=== PATIENT | male | born 1960 | race Caucasian/White ===

== ENCOUNTER 2017-03-08 15:48 | Emergency (ER) | payer OTHER ==
[~2017-03-08] VITALS: Ht 170.2 cm; Wt 99.8 kg
--- NOTE | 2017-03-08 16:09 | PHYS DOC ---
Adult General Chief Complaint Chief Complaint: NEURO SYMPTOMS/DEFICITS HPI HPI Patient is a 56 year old male who presents with slurred speech. The patient reports he was speaking on the phone at work at 0900 this morning and noticed that his speech was slurred. He believes symptoms began exactly at that time. He thinks he spoke to his dog sometime this morning and did not notice a speech deficit, though not entirely certain if he had spoken aloud since before going to bed last night. He states his symptoms are persistent until about 1600 when he arrived here. Now he states his speech is completely normal. He denies any difficulty with word finding. Denies any other neurologic symptoms including facial droop or numbness, strep any numbness or weakness, ataxia. Denies fevers or chills, headache, chest pain, shortness of breath. Denies previous history of similar symptoms. History of hypertension. Nonsmoker. Does not take aspirin daily. No family history of CVA or CAD. PCP is Dr. Vila. Review of Systems Review of Systems Constitutional: Denies fever or chills Eyes: Denies change in visual acuity HENT: Denies nasal congestion or sore throat Respiratory: Denies cough or shortness of breath Cardiovascular: Denies chest pain or edema GI: Denies abdominal pain, nausea, vomiting, or diarrhea Musculoskeletal: Denies back pain or joint pain Integument: Denies rash or skin lesions Neurologic: Reports slurred speech. Denies headache, focal weakness or sensory changes Allergies Allergies Allergies Coded Allergies Type Severity Reaction Last Updated Verified No Known Drug Allergies 03/08/17 No Physical Exam Physical Exam Constitutional: Well developed, well nourished, no acute distress, non-toxic appearance. HENT: Normocephalic, atraumatic, bilateral external ears normal, oropharynx moist, nose normal. Eyes: PERRLA, EOMI, conjunctiva normal, no discharge. Neck: supple, no stridor. Cardiovascular: RRR, no murmurs, no edema. Lungs & Thorax: LCTAB, no wheezing, no respiratory distress. Abdomen: soft, nontender, nondistended. Skin: Warm, dry, no erythema, no rash. Back: No tenderness. Extremities: No tenderness, no edema. Neurologic: Alert and oriented X 3, cranial nerves II through XII grossly intact , symmetric strength and sensation to upper and lower extremities, normal speech , no focal deficits noted. Psychologic: Affect normal, judgement normal, mood normal. Current Patient Data Vital Signs Vital Signs Date Time Temp Pulse Resp B/P (MAP) Pulse Ox O2 Delivery O2 Flow Rate FiO2 03/08/17 15:56 98.1 77 18 184/97 (126) 98 Room Air 98.1 Lab Values Laboratory Tests Test 03/08/17 16:00 03/08/17 16:05 White Blood Count 8.5 x10^3/uL (4.0-11.0) Red Blood Count 5.63 x10^6/uL (4.30-5.70) Hemoglobin 16.6 g/dL (13.0-17.5) Hematocrit 48.3 % (39.0-53.0) Mean Corpuscular Volume 86 fL (79-100) Mean Corpuscular Hemoglobin 30 pg (25-35) Mean Corpuscular Hemoglobin Concent 34 g/dL (31-37) Red Cell Distribution Width 15.0 % (11.5-14.5) H Platelet Count 230 x10^3/uL (140-400) Neutrophils (%) (Auto) 64 % (31-73) Lymphocytes (%) (Auto) 27 % (24-48) Monocytes (%) (Auto) 5 % (0-9) Eosinophils (%) (Auto) 3 % (0-3) Basophils (%) (Auto) 1 % (0-3) Neutrophils # (Auto) 5.5 x10^3uL (1.8-7.7) Lymphocytes # (Auto) 2.3 x10^3/uL (1.0-4.8) Monocytes # (Auto) 0.4 x10^3/uL (0.0-1.1) Eosinophils # (Auto) 0.3 x10^3/uL (0.0-0.7) Basophils # (Auto) 0.1 x10^3/uL (0.0-0.2) Prothrombin Time 11.4 SEC (11.7-14.0) L Prothrombin Time INR 0.9 (0.8-1.1) PTT 24 SEC (24-38) Sodium Level 141 mmol/L (136-145) Potassium Level 3.4 mmol/L (3.5-5.1) L Chloride Level 102 mmol/L (98-107) Carbon Dioxide Level 30 mmol/L (21-32) Anion Gap 9 (6-14) Blood Urea Nitrogen 15 mg/dL (8-26) Creatinine 1.2 mg/dL (0.7-1.3) Estimated GFR (Cockcroft-Gault) 63.1 BUN/Creatinine Ratio 13 (6-20) Glucose Level 152 mg/dL (70-99) H Calcium Level 9.3 mg/dL (8.5-10.1) Total Bilirubin 0.6 mg/dL (0.2-1.0) Aspartate Amino Transferase (AST) 16 U/L (15-37) Alanine Aminotransferase (ALT) 36 U/L (16-63) Alkaline Phosphatase 78 U/L (46-116) Troponin I Quantitative < 0.017 ng/mL (0.000-0.055) Total Protein 8.0 g/dL (6.4-8.2) Albumin 4.1 g/dL (3.4-5.0) Albumin/Globulin Ratio 1.1 (1.0-1.7) Ethyl Alcohol Level < 10 mg/dL (0-10) Glucose (Fingerstick) 164 mg/dL (70-99) H Laboratory Tests 03/08/17 16:00 Laboratory Tests 03/08/17 16:00 EKG EKG interpreted by me: NSR rate 66, no acute ST/T wave changes, normal intervals, no ectopy.[] Radiology/Procedures Radiology/Procedures PROCEDURE: CHEST AP ONLY AP portable chest radiograph 03/08/2017 Clinical History: Unexplained speech difficulties. An AP portable erect digital radiograph of the chest was obtained. No previous studies are available for comparison. The cardiac silhouette is normal in size. The thoracic aorta is mildly tortuous. No acute pulmonary infiltrate is seen. No pleural effusion or pneumothorax is noted. Degenerative changes are seen involving the thoracic spine and both shoulders. Impression: No acute abnormality is seen. DICTATED and SIGNED BY: ALENA SWANSON MD DATE: 03/08/17 1051 PROCEDURE: CHEST AP ONLY AP portable chest radiograph 03/08/2017 Clinical History: Unexplained speech difficulties. An AP portable erect digital radiograph of the chest was obtained. No previous studies are available for comparison. The cardiac silhouette is normal in size. The thoracic aorta is mildly tortuous. No acute pulmonary infiltrate is seen. No pleural effusion or pneumothorax is noted. Degenerative changes are seen involving the thoracic spine and both shoulders. Impression: No acute abnormality is seen. DICTATED and SIGNED BY: ALENA SWANSON MD DATE: 03/08/17 5617 [] Course & Med Decision Making Course & Med Decision Making Pertinent Labs and Imaging studies reviewed. (See chart for details) The patient presents with history of slurred speech earlier today. Symptoms completely resolved with an NIH score of 0. History is concerning for TIA. Obtained labs, EKG, head CT, chest x-ray. No evidence of acute abnormality on workup here. I recommended admission to the hospital for further evaluation and treatment including neurology consultation and advanced imaging. The patient wanted to go home to take care of his dog. We discussed risks of leaving including worsening condition specifically severe stroke, undiagnosed condition , possibly . He voices understanding, is alert and oriented 3, understands risks of leaving, but states he has nobody else to take care of his head. He understands that he may return at any time to continue workup. I specifically made him aware that I will be here until midnight tonight. He is going to leave AGAINST MEDICAL ADVICE. He is in stable condition at this time. Diagnosis: 1. Slurred speech 2. Suspect transient ischemic attack [] Dragon Disclaimer Dragon Disclaimer This electronic medical record was generated, in whole or in part, using a voice recognition dictation system. Departure Departure Disposition: AGAINST MEDICAL ADVICE Condition: STABLE Referrals: EMMA VILA Jr, MD (PCP) Patient Instructions: Transient Ischemic Attack, [id number] Additional Instructions: You were seen in the emergency department today for slurred speech. Your symptoms could be caused by a transient ischemic attack which is commonly called a mini stroke. We recommended admission to the hospital for further evaluation by a neurologist and additional diagnostic testing. You needed to leave for personal reasons. The risks of leaving include worsening condition, undiagnosed condition, possibly . You may return to the hospital for admission if you choose. MARISSA OSULLIVAN MD Mar 08, 2017 16:09
[2017-03-08 16:30] LABS: BASO # 0.1 x10^3/uL (0.0-0.2); BASO % 1 % (0-3); EOS % 3 % (0-3); HEMATOCRIT 48.3 % (39.0-53.0); HEMOGLOBIN 16.6 g/dL (13.0-17.5); LYMPH # 2.3 x10^3/uL (1.0-4.8); LYMPH % 27 % (24-48); MEAN CORPUSCULAR HEMOGLOBIN 30 pg (25-35); MEAN CORPUSCULAR HGB CONC 34 g/dL (31-37); MEAN CORPUSCULAR VOLUME 86 fL (79-100); MONO % 5 % (0-9); NEUT % 64 % (31-73); PLATELET COUNT 230 x10^3/uL (140-400); RED BLOOD COUNT 5.63 x10^6/uL (4.30-5.70); WHITE BLOOD COUNT 8.5 x10^3/uL (4.0-11.0)
[2017-03-08 16:37] LABS: INR 0.9 (0.8-1.1); PROTHROMBIN TIME PATIENT 11.4 SEC (11.7-14.0)
--- NOTE | 2017-03-08 16:38 | RAD ---
AP portable chest radiograph 03/08/2017 Clinical History: Unexplained speech difficulties. An AP portable erect digital radiograph of the chest was obtained. No previous studies are available for comparison. The cardiac silhouette is normal in size. The thoracic aorta is mildly tortuous. No acute pulmonary infiltrate is seen. No pleural effusion or pneumothorax is noted. Degenerative changes are seen involving the thoracic spine and both shoulders. Impression: No acute abnormality is seen.
--- NOTE | 2017-03-08 16:39 | EKG ---
[facility] [address] [place] [address] Test Date: 2017-03-08 Test Time: 16:24:54 Pat Name: ALEXSANDRA HAYNES Department: Room: Gender: M [employer]: : 1960 Requested By: MARISSA OSULLIVAN Order Number: [id number] Reading MD: Asaf Shelton Measurements Intervals [place] Rate: 66 P: 35 NE: 158 QRS: 19 QRSD: 94 T: 60 QT: 410 QTc: 432 Interpretive Statements SINUS RHYTHM NON-SPECIFIC ST/T CHANGES Electronically Signed On 03-13-2017 8:45:44 CDT by Asaf Shelton
[2017-03-08 16:41] LABS: CALCIUM 9.3 mg/dL (8.5-10.1); CREATININE 1.2 mg/dL (0.7-1.3); GFR 63.1; POTASSIUM 3.4 mmol/L (3.5-5.1)
[2017-03-08 16:48] LABS: ALBUMIN 4.1 g/dL (3.4-5.0); ALBUMIN/GLOBULIN RATIO 1.1 (1.0-1.7); TOTAL BILIRUBIN 0.6 mg/dL (0.2-1.0)
--- NOTE | 2017-03-08 16:58 | RAD ---
CT scan of the head without contrast 03/08/2017 Clinical History: Slurred speech since this morning. Technique: Unenhanced, contiguous, 5 mm axial sections were obtained through the head. One or more of the following individualized dose reduction techniques were utilized for this study: 1. Automated exposure control. 2. Adjustment of the mA and/or kV according to patient size. 3. Use of iterative reconstruction technique. Findings: No previous studies are available for comparison. There is generalized parenchymal atrophy. Small scattered areas of decreased attenuation are seen within the periventricular and subcortical white matter of both cerebral hemispheres consistent with areas of small vessel ischemic disease. No acute parenchymal abnormality is seen. No extra-axial fluid collection is noted. No skull fracture is seen. Impression: No acute intracranial abnormality is seen.
[2017-03-08 17:00] VITALS: BP 163/79
[2017-03-08 17:56] LABS: BARBITURATES NEG (NEG); BENZODIAZEPINES NEG (NEG); CANNABINOIDS POS (NEG); COCAINE NEG (NEG); METHADONE NEG (NEG); OPIATES NEG (NEG); PHENCYCLIDINE NEG (NEG)
[2017-03-09] MEDS ORDERED: LOSA1TAB18 PO (14:57)
[2017-03-10] MEDS ORDERED: ASPI325T8 PO (11:38)
[2017-03-10] MEDS ORDERED: ATOR20TA58 PO (11:38)
[2017-03-11] MEDS ORDERED: LOSA50TA2 PO (12:43)
== END 2017-03-08 17:50 | disposition left against medical advice (07) ==
LOC: ER 15:48
DX: R47.81 Slurred speech (principal); I10 Essential (primary) hypertension
CPT/HCPCS: 36415; 70450; 71010; 80053; 80307; 82962; 84484; 85025; 85610; 85730; 93005; 99285; G0480; G0479

== ENCOUNTER 2017-03-09 08:40 | Observation (INO) | payer OTHER ==
[~2017-03-09] VITALS: Ht 170.2 cm; Wt 99.3 kg
[2017-03-09 09:27] LABS: CALCIUM 9.2 mg/dL (8.5-10.1); CREATININE 1.2 mg/dL (0.7-1.3); GFR 63.1; POTASSIUM 4.2 mmol/L (3.5-5.1)
[2017-03-09] MEDS ORDERED: IOHEXOL 300 MG/ML 75 ML VIAL IV ONE (09:30)
[2017-03-09] MEDS ORDERED: CONTRAST GIVEN MC PRN (09:30)
[2017-03-09 09:33] LABS: ALBUMIN 4.1 g/dL (3.4-5.0); DIRECT BILIRUBIN 0.2 mg/dL (0.0-0.2); TOTAL BILIRUBIN 1.2 mg/dL (0.2-1.0); TOTAL PROTEIN 7.9 g/dL (6.4-8.2)
[2017-03-09 09:49] LABS: BILIRUBIN,URINE NEGATIVE (NEG); GLUCOSE,URINE NEGATIVE (NEG); NITRITE,URINE NEGATIVE (NEG); PROTEIN,URINE NEGATIVE (NEG-TRACE); UROBILINOGEN,URINE 0.2 mg/dL (0.2 mg/dL)
[2017-03-09 09:53] LABS: BARBITURATES NEG (NEG); BENZODIAZEPINES NEG (NEG); CANNABINOIDS POS (NEG); COCAINE NEG (NEG); METHADONE NEG (NEG); OPIATES NEG (NEG); PHENCYCLIDINE NEG (NEG)
[2017-03-09 09:58] LABS: BACTERIA,URINE 0 /HPF (0-FEW); RBC,URINE 0 /HPF (0-2); WBC,URINE OCC /HPF (0-4)
[2017-03-09 10:03] LABS: BASO % 1 % (0-3); EOS % 4 % (0-3); HEMATOCRIT 47.5 % (39.0-53.0); HEMOGLOBIN 17.2 g/dL (13.0-17.5); LYMPH # 1.7 x10^3/uL (1.0-4.8); LYMPH % 27 % (24-48); MEAN CORPUSCULAR HEMOGLOBIN 30 pg (25-35); MEAN CORPUSCULAR HGB CONC 36 g/dL (31-37); MEAN CORPUSCULAR VOLUME 84 fL (79-100); MONO % 6 % (0-9); NEUT % 62 % (31-73); PLATELET COUNT 219 x10^3/uL (140-400); RED BLOOD COUNT 5.66 x10^6/uL (4.30-5.70); WHITE BLOOD COUNT 6.2 x10^3/uL (4.0-11.0)
[2017-03-09] MEDS ORDERED: LABETALOL 20 MG/4 ML DISP.SYRIN. IVP ONE (10:15)
[2017-03-09] MEDS: IV NORMAL SALINE 1000ML BAG 1,000 ML IV SCH ×2 (10:18→20:10)
--- NOTE | 2017-03-09 10:26 | RAD ---
Exam performed: CT scan of the head without contrast. Date of Service: 03/09/17. Comparison: CT head without contrast from 03/08/17. Clinical History: Facial droop and slurred speech since yesterday. Technique: Helical acquisitions are obtained from the foramen magnum to the vertex without intravenous administration of contrast. Findings: There is prominence of cortical sulci and ventricular system compatible with age related atrophy. There are areas of low-attenuation in both periventricular deep white matter suggesting small vessel ischemic changes. Left lacunar infarct. Normal wright-white differentiation is maintained. There is no extra axial fluid collection, intraparenchymal hemorrhage or mass lesion. The visualized portions of the orbits, paranasal sinuses and the mastoid air cells appear clear. The calvarium is intact. Impression: 1. Age-appropriate atrophy without any acute intracranial process. No interval change since yesterday's exam. PQRS Compliance Statement: One or more of the following individualized dose reduction techniques were utilized for this examination: 1. Automated exposure control 2. Adjustment of the mA and/or kV according to patient size 3. Use of iterative reconstruction technique
--- NOTE | 2017-03-09 10:27 | EKG ---
[facility] [address] [place] [address] Test Date: 2017-03-09 Test Time: 09:20:50 Pat Name: ALEXSANDRA HAYNES Department: Room: Gender: M Resident Advisor: : [id number] Requested By: CASTRO MOORE Order Number: [id number] Reading MD: Asaf Shelton Measurements Intervals [place] Rate: 77 P: 37 CT: 154 QRS: 24 QRSD: 100 T: 24 QT: 396 QTc: 450 Interpretive Statements SINUS RHYTHM Electronically Signed On 03-13-2017 9:47:50 CDT by Asaf Shelton
--- NOTE | 2017-03-09 10:42 | RAD ---
CTA of the neck and head with contrast 03/09/2017 Clinical history: Facial droop and slurred speech for one day. Technique: After the intravenous administration of 70 cc of Omnipaque 300, contiguous, 0.625 mm axial sections were obtained through the upper chest, neck and head. 1 mm reconstructed axial and 3D MIP sagittal and coronal reconstructed images of the head and neck were obtained. Additionally 3-D volume rendered reconstructed images of the thoracic aortic arch to include the carotid and vertebral arterial structures within the neck and the major arterial structures surrounding the [place] were performed. One or more of the following individualized dose reduction techniques were utilized for this study: 1. Automated exposure control. 2. Adjustment of the mA and/or kV according to patient size. 3. Use of iterative reconstruction technique. Stenosis calculations for CTA are based upon the NASCET methodology. Findings: Comparison is made to patient's CT scan of the head performed earlier the same day. Mild scattered atherosclerotic plaque formation is seen involving the thoracic aortic arch. The origins of the brachiocephalic, left common carotid and left subclavian arteries are patent. The origin of the right common carotid artery is patent. The origins of both vertebral arteries are patent. The common carotid arteries are within normal limits bilaterally. Very mild atherosclerotic plaque formation is seen involving both carotid bifurcations and the proximal internal carotid arteries. No hemodynamically significant stenosis or area of occlusion is seen. The internal carotid arteries within the neck are patent. No areas of stenosis or occlusion is seen. The vertebral arteries are codominant. Both vertebral arteries demonstrate normal antegrade flow. No area of stenosis or occlusion is seen. Intracranially mild atherosclerotic plaque formation is seen involving the cavernous portions of both internal carotid arteries. No area of stenosis or occlusion is seen. The basilar artery is patent. The anterior, middle and posterior cerebral arteries and their branches are within normal limits. No area of stenosis or occlusion is seen. No intracranial aneurysm is noted. The major dural venous sinuses are patent. No filling defect is seen. No abnormal area of contrast enhancement is seen involving the brain parenchyma. No acute soft tissue abnormality is seen involving the neck. Mild to moderate mucosal thickening is seen involving both maxillary sinuses, left greater than right. Degenerative changes are seen involving the uncovertebral and facet joints throughout the cervical disc spaces. Impression: No area of stenosis or occlusion is seen.
[2017-03-09] MEDS ORDERED: ONDANSETRON PF 4 MG/2 ML VIAL. IV PRN (10:45)
[2017-03-09] MEDS ORDERED: MORPHINE SULFATE 2 MG/ML DISP.SYRIN. IV PRN (10:45)
[2017-03-09] MEDS ORDERED: ASPIRIN CHEWABLE 81 MG TABLET. PO ONE (11:00)
[2017-03-09] MEDS ORDERED: LABETALOL 20 MG/4 ML DISP.SYRIN. IVP PRN (11:30)
--- NOTE | 2017-03-09 14:11 | PHYS DOC ---
Past Medical History Past Medical History: Hypertension Past Surgical History: Appendectomy Additional Past Surgical Histo: ROTATOR CUFF Alcohol Use: Occasionally Drug Use: Marijuana Adult General Chief Complaint Chief Complaint: NEURO SYMPTOMS/DEFICITS HPI HPI 56-year-old male presenting to the emergency department today after having slurred speech. he reports being known normal at around 10:30 or 11. He woke up with facial asymmetry and slurred speech. He was seen yesterday for TIA symptoms but needed to go home to take care of his dog. Location brain. Duration intermittent. No alleviating or exacerbating factors present. Review of systems is negative for chest pain shortness of breath abdominal pain nausea vomiting fevers or chills. All other review of systems is negative unless otherwise noted in history of present illness. ED course: 56-year-old male presenting to the emergency department with sudden onset of facial asymmetry and slurring of speech. Patient upon initial presentation is 9 hours since last known normal if you do not count the patient' s slurred speech yesterday for which he was being evaluated for TIA. Patient is outside of the TPA window at this time. CT head obtained which was negative. CT angiography negative. Otherwise workup unremarkable. Patient then admitted for stroke workup. I talked to Dr. moreland who is the neurologist on-call. Review of Systems Review of Systems SEE ABOVE. Current Medications Current Medications Current Medications Medications (Trade) Dose Ordered Sig/Adam Start Time Stop Time Status Last Admin Dose Admin Info (Do NOT chart on this entry -- for MONITORING) 1 each PRN DAILY PRN 03/09/17 09:30 03/11/17 09:29 Iohexol (Omnipaque 300 Mg/ml) 75 ml 1X ONCE 03/09/17 09:30 03/09/17 09:31 DC 03/09/17 09:45 75 ML Sodium Chloride 1,000 ml @ 100 mls/hr Q10H 03/09/17 09:30 03/09/17 10:18 100 MLS/HR Allergies Allergies Allergies Coded Allergies Type Severity Reaction Last Updated Verified No Known Drug Allergies 03/08/17 No Physical Exam Physical Exam SEE ABOVE Constitutional: Well developed, well nourished, no acute distress, non-toxic appearance. [] HENT: Normocephalic, atraumatic, bilateral external ears normal, oropharynx moist, no oral exudates, nose normal. Eyes: PERRLA, EOMI, conjunctiva normal, no discharge. Neck: Normal range of motion, no tenderness, supple, no stridor. Cardiovascular:Heart rate regular rhythm, no murmur [] Lungs & Thorax: Bilateral breath sounds clear to auscultation Abdomen: Bowel sounds normal, soft, no tenderness, no masses, no pulsatile masses. [] Skin: Warm, dry, no erythema, no rash. Back: No tenderness, no CVA tenderness. [] Extremities: No tenderness, no cyanosis, no clubbing, ROM intact, no edema. Neurologic: Mental status: Awake oriented and alert x3 Cranial nerves: Extraocular movements intact, eyebrows keanu bilaterally, smile is asymetric with droop of the left facial muscles, uvula elevation nl, shoulder shrug intact, tongue protrusion normal DTRs: 2+ Sensation: equal and normal in all extremities Strength: 5/5 in upper and lower extremities bilaterally Psychologic: Affect normal, judgement normal, mood normal. [] Current Patient Data Vital Signs Vital Signs Date Time Temp Pulse Resp B/P (MAP) Pulse Ox O2 Delivery O2 Flow Rate FiO2 03/09/17 10:00 67 181/108 (132) 03/09/17 09:30 18 98 Room Air 03/09/17 08:47 97.8 97.8 Lab Values Laboratory Tests Test 03/09/17 08:56 03/09/17 09:08 03/09/17 09:34 Glucose (Fingerstick) 164 mg/dL (70-99) H White Blood Count 6.2 x10^3/uL (4.0-11.0) Red Blood Count 5.66 x10^6/uL (4.30-5.70) Hemoglobin 17.2 g/dL (13.0-17.5) Hematocrit 47.5 % (39.0-53.0) Mean Corpuscular Volume 84 fL (79-100) Mean Corpuscular Hemoglobin 30 pg (25-35) Mean Corpuscular Hemoglobin Concent 36 g/dL (31-37) Red Cell Distribution Width 15.0 % (11.5-14.5) H Platelet Count 219 x10^3/uL (140-400) Neutrophils (%) (Auto) 62 % (31-73) Lymphocytes (%) (Auto) 27 % (24-48) Monocytes (%) (Auto) 6 % (0-9) Eosinophils (%) (Auto) 4 % (0-3) H Basophils (%) (Auto) 1 % (0-3) Neutrophils # (Auto) 3.8 x10^3uL (1.8-7.7) Lymphocytes # (Auto) 1.7 x10^3/uL (1.0-4.8) Monocytes # (Auto) 0.4 x10^3/uL (0.0-1.1) Eosinophils # (Auto) 0.3 x10^3/uL (0.0-0.7) Basophils # (Auto) 0.0 x10^3/uL (0.0-0.2) Sodium Level 138 mmol/L (136-145) Potassium Level 4.2 mmol/L (3.5-5.1) Chloride Level 100 mmol/L (98-107) Carbon Dioxide Level 24 mmol/L (21-32) Anion Gap 14 (6-14) Blood Urea Nitrogen 11 mg/dL (8-26) Creatinine 1.2 mg/dL (0.7-1.3) Estimated GFR (Cockcroft-Gault) 63.1 Glucose Level 188 mg/dL (70-99) H Calcium Level 9.2 mg/dL (8.5-10.1) Total Bilirubin 1.2 mg/dL (0.2-1.0) H Direct Bilirubin 0.2 mg/dL (0.0-0.2) Aspartate Amino Transferase (AST) 29 U/L (15-37) Alanine Aminotransferase (ALT) 44 U/L (16-63) Alkaline Phosphatase 58 U/L (46-116) Troponin I Quantitative < 0.017 ng/mL (0.000-0.055) Total Protein 7.9 g/dL (6.4-8.2) Albumin 4.1 g/dL (3.4-5.0) Urine Collection Type Unknown Urine Color Yellow Urine Clarity Clear Urine pH 6.0 Urine Specific [place] <=1.005 Urine Protein Negative mg/dL (NEG-TRACE) Urine Glucose (UA) Negative mg/dL (NEG) Urine Ketones (Stick) Negative mg/dL (NEG) Urine Blood Negative (NEG) Urine Nitrite Negative (NEG) Urine Bilirubin Negative (NEG) Urine Urobilinogen Dipstick 0.2 mg/dL (0.2 mg/dL) Urine Leukocyte Esterase Negative (NEG) Urine RBC 0 /HPF (0-2) Urine WBC Occ /HPF (0-4) Urine Bacteria 0 /HPF (0-FEW) Urine Opiates Screen Neg (NEG) Urine Methadone Screen Neg (NEG) Urine Barbiturates Neg (NEG) Urine Phencyclidine Screen Neg (NEG) Urine Amphetamine/Methamphetamine Neg (NEG) Urine Benzodiazepines Screen Neg (NEG) Urine Cocaine Screen Neg (NEG) Urine Cannabinoids Screen Pos (NEG) Urine Ethyl Alcohol Neg (NEG) Laboratory Tests 03/09/17 09:08 Laboratory Tests 03/09/17 09:08 EKG EKG [] Radiology/Procedures Radiology/Procedures [] Course & Med Decision Making Course & Med Decision Making Pertinent Labs and Imaging studies reviewed. (See chart for details) [] Dragon Disclaimer Dragon Disclaimer This electronic medical record was generated, in whole or in part, using a voice recognition dictation system. Departure Departure Impression: Primary Impression: Stroke-like symptoms Disposition: ADMITTED INPATIENT Admitting Physician: Damaris Watkins Condition: STABLE Referrals: EMMA VILA Jr, MD (PCP) CASTRO MOORE MD Mar 09, 2017 14:11
[2017-03-09 14:25] VITALS: BP 159/97
--- NOTE | 2017-03-09 14:51 | RAD ---
MRI Brain without contrast History: Right-sided facial droop with slurred speech for one day Technique: Multiplanar, multisequential noncontrast MR imaging was performed of the brain. Contrast: None Comparison: None Findings: Not associated with significant increased FLAIR T2 signal, there is 1.2 cm focus of restricted diffusion of the posterior right almanza radiata. There is a tiny focus of restricted diffusion more superiorly of the right frontal parietal white matter which is hyperintense on T2 and FLAIR sequence. There are multiple old lacunar infarcts of the supratentorial white matter bilaterally, also foci of the henna and basal ganglia. There are some scattered foci of hemosiderin deposition such as of the left frontal lobe, minimally of the right frontal and parietal lobes. There is no intra-axial mass effect, midline shift, extra-axial fluid collection. Ventricular size is within normal limits. There is no significant abnormality of the pineal gland or pituitary gland. Cerebellar tonsils are normal in location. There is mild nonspecific heterogeneity of marrow of the nonexpanded clivus. There is patchy mild ethmoid air cell mucosal thickening, also minimally of the left frontal sinus. There is mild to moderate left maxillary sinus mucosal thickening greater inferiorly with adjacent mucous retention cyst on the order of 1.5 cm. There is mild inferior right maxillary sinus mucosal thickening. There is mild prominence of the supratentorial subarachnoid spaces which may be due to mild involutional change. Impression: 1. There is acute infarct of the posterior right almanza radiata. Tiny focus of diffusion signal change more superiorly is likely due to focus of subacute infarct. 2. There are multiple old lacunar infarcts of the supratentorial white matter bilaterally, also of the henna and minimally of the basal ganglia. There are foci of old microhemorrhage/hemosiderin deposition most notable of the left frontal lobe. FOR INTERNAL CODING PURPOSES Critical result: Findings discussed with patient's nurse Paty at 03/09/2017 2:47 PM, to inform doctor of findings. RESULT CODE: (C) Electronically signed by: Vicente De La Paz MD (03/09/2017 2:47 PM) [id number]
[2017-03-09] MEDS ORDERED: LOSA1TAB18 PO (14:57)
--- NOTE | 2017-03-09 16:24 | RAD ---
Bilateral carotid arterial duplex study 03/09/2017 Clinical History: CVA. Technique: Using a combination of real-time ultrasound imaging and color-flow and pulse Doppler imaging techniques, duplex evaluation of the carotid and vertebral arterial structures within the neck was performed. Multiple images were obtained. Findings: No significant atheromatous plaque formation is seen involving either carotid bifurcations. The peak systolic velocities are not significantly elevated. No hemodynamically significant stenosis is seen. The vertebral arteries demonstrate normal antegrade flow. Impression: Negative study. Please note that stenosis calculations for carotid ultrasound studies are derived from validated velocity criteria which are known to correlate with the NASCET methodology.
--- NOTE | 2017-03-09 18:18 | CARD ---
APPROVED REPORT EXAM: Two-dimensional and M-mode echocardiogram with Doppler and color Doppler. Other Information Quality : Good INDICATION CVA/TIA Echo Enhancing Agent Agent/Amount Used: Agitated Saline 16mL 2D DIMENSIONS RVDd3.8 (2.9-3.5cm)Left Atrium(2D)3.6 (1.6-4.0cm) IVSd1.3 (0.7-1.1cm)Aortic Root(2D)3.0 (2.0-3.7cm) LVDd3.7 (3.9-5.9cm)LVOT Diameter2.2 (1.8-2.4cm) PWd1.3 (0.7-1.1cm)LVDs2.0 (2.5-4.0cm) FS (%) 30.0 %SV45.6 ml LVEF(%)60.0 (>50%) Mitral Valve MV E Mhnjbupd28.9cm/sMV DECEL [id number] MV A Bjahqugw88.8cm/sE/A Ratio1.2 Pulmonary Vein S1 Bohagrwh68.1cm/sD2 Vkjdiyim79.4cm/s LEFT VENTRICLE The left ventricle is normal size. There is mild concentric left ventricular hypertrophy. The left ve ntricular systolic function is normal and the ejection fraction is within normal range. The Ejection Fraction is 55-60%. There is normal LV segmental wall motion. Transmitral Doppler flow pattern is Gra de I-abnormal relaxation pattern. RIGHT VENTRICLE The right ventricle is normal size. The right ventricular systolic function is normal. ATRIA The left atrium size is normal. The right atrium size is normal. The interatrial septum is intact wit h no evidence for an atrial septal defect or patent foramen ovale as noted on 2-D or Doppler imaging. Injection of bubbles documented no interatrial shunt. AORTIC VALVE The aortic valve is normal in structure and function. Doppler and Color Flow revealed no significant aortic regurgitation. There is no significant aortic valvular stenosis. MITRAL VALVE The mitral valve is normal in structure and function. There is no evidence of mitral valve prolapse. There is no mitral valve stenosis. Doppler and Color-flow revealed trace mitral regurgitation. TRICUSPID VALVE The tricuspid valve is normal in structure and function. Doppler and Color Flow revealed trace tricus pid regurgitation. There is no tricuspid valve stenosis. PULMONIC VALVE The pulmonary valve is normal in structure and function. Doppler and Color Flow revealed mild pulmoni c valvular regurgitation. There is no pulmonic valvular stenosis. GREAT VESSELS The aortic root is normal in size. The ascending aorta is normal in size. The IVC is normal in size a nd collapses >50% with inspiration. PERICARDIAL EFFUSION There is no evidence of significant pericardial effusion. Critical Notification Critical Value: No <Conclusion> The left ventricular systolic function is normal and the ejection fraction is within normal range. Th e Ejection Fraction is 55-60%. There is normal LV segmental wall motion. The interatrial septum is intact with no evidence for an atrial septal defect or patent foramen ovale as noted on 2-D or Doppler imaging. Injection of bubbles documented no interatrial shunt.
[2017-03-09 19:00] VITALS: BP 157/89
--- NOTE | 2017-03-09 19:12 | HP ---
ADMIT DATE: 03/09/2017 CHIEF COMPLAINT: Slurred speech and facial droop. HISTORY OF PRESENT ILLNESS: The patient is a pleasant 59-year-old male who was at the ER yesterday and seen for TIA symptoms. His symptoms seemed to resolve. He was sent home on aspirin. Today, his symptoms returned. He has got facial droop especially on the right. His speech is a little slurred. He has no other weakness. I have discussed the case with the ER physician. We are going to admit the patient and consult Dr. Lewis. PAST MEDICAL HISTORY: Hypertension, appendectomy, rotator cuff surgery and marijuana use. ALLERGIES: None. FAMILY HISTORY: Diabetes. SOCIAL HISTORY: He does not drink, smoke or take drugs other than marijuana. MEDICATIONS: Reviewed, please refer to the MRAD. REVIEW OF SYSTEMS: GENERAL: No history of weight change, weakness or fevers. SKIN: No bruising, hair changes or rashes. EYES: No blurred, double or loss of vision. NOSE AND THROAT: No history of nosebleeds, hoarseness or sore throat. HEART: No history of palpitations, chest pain or shortness of breath on exertion. LUNGS: Denies cough, hemoptysis, wheezing or shortness of breath. GASTROINTESTINAL: Denies changes in appetite, nausea, vomiting, diarrhea or constipation. GENITOURINARY: No history of frequency, urgency, hesitancy or nocturia. NEUROLOGIC: He complains of right facial droop and slurred speech. PSYCHIATRIC: No history of panic, anxiety or depression. ENDOCRINE: No history of heat or cold intolerance, polyuria or polydipsia. EXTREMITIES: Denies muscle weakness, joint pain, pain on walking or stiffness. PHYSICAL EXAMINATION: VITAL SIGNS: Temperature afebrile, pulse 64, respirations 20, blood pressure 159/97. GENERAL: He is alert, cooperative. HEART: Normal S1, S2. LUNGS: Clear. ABDOMEN: Soft. EXTREMITIES: No edema. SKIN: No rashes. PSYCHIATRIC: He seems a little depressed. VASCULAR: Good capillary refill. ENDOCRINE: No thyromegaly. LYMPHATICS: No cervical nodes. HEMATOPOIETIC: No bruising. NEUROLOGICAL: He is alert, oriented, moving all extremities. He does have a right facial droop. ASSESSMENT AND PLAN: Stroke symptoms. The patient is being admitted. Consult Dr. Lewis. Continue home medicines, PT, OT, speech therapy. GERARD QUESADA DO DR: Anand JOB#: [id number] / [id number]
[2017-03-09] MEDS: ATORVASTATIN CALCIUM 20 MG TABLET PO SCH (20:09)
[2017-03-09 23:00] VITALS: BP 146/94
[2017-03-10 03:00] VITALS: BP 158/87
[2017-03-10 05:28] LABS: BASO % 1 % (0-3); EOS % 5 % (0-3); HEMATOCRIT 43.9 % (39.0-53.0); HEMOGLOBIN 15.5 g/dL (13.0-17.5); LYMPH % 37 % (24-48); MEAN CORPUSCULAR HEMOGLOBIN 30 pg (25-35); MEAN CORPUSCULAR HGB CONC 35 g/dL (31-37); MEAN CORPUSCULAR VOLUME 84 fL (79-100); MONO % 7 % (0-9); NEUT % 50 % (31-73); PLATELET COUNT 191 x10^3/uL (140-400); RED BLOOD COUNT 5.22 x10^6/uL (4.30-5.70); RED CELL DISTRIBUTION WIDTH 15.3 % (11.5-14.5); WHITE BLOOD COUNT 8.1 x10^3/uL (4.0-11.0)
[2017-03-10] MEDS: IV NORMAL SALINE 1000ML BAG 1,000 ML IV SCH ×2 (05:46→16:22)
[2017-03-10 06:08] LABS: CALCIUM 8.5 mg/dL (8.5-10.1); CREATININE 1.2 mg/dL (0.7-1.3); GFR 63.1; POTASSIUM 3.4 mmol/L (3.5-5.1)
[2017-03-10 07:22] VITALS: BP 171/87
[2017-03-10] MEDS: ASPIRIN 325 MG TABLET PO SCH (08:38)
[2017-03-10 11:14] VITALS: BP 131/106
[2017-03-10] MEDS ORDERED: ASPI325T8 PO (11:38)
[2017-03-10] MEDS ORDERED: ATOR20TA58 PO (11:38)
--- NOTE | 2017-03-10 13:57 | PDOC ---
PROGRESS NOTES Chief Complaint Chief Complaint acute infarct of the posterior right almanza radiata bl old infarct drug abuse with marijuana HTn urgency hypokalemia plan: fu with neuro on asa, lipitor swallow eval repleTE k IVF CHECK lipid panel if can take po, losartan daily dvt ppx echo, carotid ok, + MRI History of Present Illness History of Present Illness slurry speech still, failed swallow eval BP high ros: no fever, chills, sob or chest pain Vitals Vitals Vital Signs Date Time Temp Pulse Resp B/P (MAP) Pulse Ox O2 Delivery O2 Flow Rate FiO2 03/10/17 11:14 98.2 58 16 131/106 (114) 97 Room Air 98.2 Physical Exam Physical Exam slurry speech General: Alert, Oriented X3, Cooperative Heart: Regular rate, Normal S1, Normal S2 Lungs: Clear Abdomen: Normal bowel sounds, Soft Extremities: No clubbing, No cyanosis Skin: No rashes Labs LABS Laboratory Tests Test 03/10/17 04:30 White Blood Count 8.1 x10^3/uL (4.0-11.0) Red Blood Count 5.22 x10^6/uL (4.30-5.70) Hemoglobin 15.5 g/dL (13.0-17.5) Hematocrit 43.9 % (39.0-53.0) Mean Corpuscular Volume 84 fL (79-100) Mean Corpuscular Hemoglobin 30 pg (25-35) Mean Corpuscular Hemoglobin Concent 35 g/dL (31-37) Red Cell Distribution Width 15.3 % (11.5-14.5) Platelet Count 191 x10^3/uL (140-400) Neutrophils (%) (Auto) 50 % (31-73) Lymphocytes (%) (Auto) 37 % (24-48) Monocytes (%) (Auto) 7 % (0-9) Eosinophils (%) (Auto) 5 % (0-3) Basophils (%) (Auto) 1 % (0-3) Neutrophils # (Auto) 4.0 x10^3uL (1.8-7.7) Lymphocytes # (Auto) 3.0 x10^3/uL (1.0-4.8) Monocytes # (Auto) 0.6 x10^3/uL (0.0-1.1) Eosinophils # (Auto) 0.4 x10^3/uL (0.0-0.7) Basophils # (Auto) 0.0 x10^3/uL (0.0-0.2) Sodium Level 142 mmol/L (136-145) Potassium Level 3.4 mmol/L (3.5-5.1) Chloride Level 105 mmol/L (98-107) Carbon Dioxide Level 25 mmol/L (21-32) Anion Gap 12 (6-14) Blood Urea Nitrogen 10 mg/dL (8-26) Creatinine 1.2 mg/dL (0.7-1.3) Estimated GFR (Cockcroft-Gault) 63.1 Glucose Level 83 mg/dL (70-99) Calcium Level 8.5 mg/dL (8.5-10.1) Assessment and Plan Assessmemt and Plan Problems Medical Problems: (1) Stroke-like symptoms Status: Acute Problems: Comment Review of Relevant I have reviewed the following items jeremiah (where applicable) has been applied. Labs Laboratory Tests Test 03/09/17 08:56 03/09/17 09:08 03/09/17 09:34 03/10/17 04:30 Glucose (Fingerstick) 164 mg/dL (70-99) White Blood Count 6.2 x10^3/uL (4.0-11.0) 8.1 x10^3/uL (4.0-11.0) Red Blood Count 5.66 x10^6/uL (4.30-5.70) 5.22 x10^6/uL (4.30-5.70) Hemoglobin 17.2 g/dL (13.0-17.5) 15.5 g/dL (13.0-17.5) Hematocrit 47.5 % (39.0-53.0) 43.9 % (39.0-53.0) Mean Corpuscular Volume 84 fL (79-100) 84 fL (79-100) Mean Corpuscular Hemoglobin 30 pg (25-35) 30 pg (25-35) Mean Corpuscular Hemoglobin Concent 36 g/dL (31-37) 35 g/dL (31-37) Red Cell Distribution Width 15.0 % (11.5-14.5) 15.3 % (11.5-14.5) Platelet Count 219 x10^3/uL (140-400) 191 x10^3/uL (140-400) Neutrophils (%) (Auto) 62 % (31-73) 50 % (31-73) Lymphocytes (%) (Auto) 27 % (24-48) 37 % (24-48) Monocytes (%) (Auto) 6 % (0-9) 7 % (0-9) Eosinophils (%) (Auto) 4 % (0-3) 5 % (0-3) Basophils (%) (Auto) 1 % (0-3) 1 % (0-3) Neutrophils # (Auto) 3.8 x10^3uL (1.8-7.7) 4.0 x10^3uL (1.8-7.7) Lymphocytes # (Auto) 1.7 x10^3/uL (1.0-4.8) 3.0 x10^3/uL (1.0-4.8) Monocytes # (Auto) 0.4 x10^3/uL (0.0-1.1) 0.6 x10^3/uL (0.0-1.1) Eosinophils # (Auto) 0.3 x10^3/uL (0.0-0.7) 0.4 x10^3/uL (0.0-0.7) Basophils # (Auto) 0.0 x10^3/uL (0.0-0.2) 0.0 x10^3/uL (0.0-0.2) Sodium Level 138 mmol/L (136-145) 142 mmol/L (136-145) Potassium Level 4.2 mmol/L (3.5-5.1) 3.4 mmol/L (3.5-5.1) Chloride Level 100 mmol/L (98-107) 105 mmol/L (98-107) Carbon Dioxide Level 24 mmol/L (21-32) 25 mmol/L (21-32) Anion Gap 14 (6-14) 12 (6-14) Blood Urea Nitrogen 11 mg/dL (8-26) 10 mg/dL (8-26) Creatinine 1.2 mg/dL (0.7-1.3) 1.2 mg/dL (0.7-1.3) Estimated GFR (Cockcroft-Gault) 63.1 63.1 Glucose Level 188 mg/dL (70-99) 83 mg/dL (70-99) Calcium Level 9.2 mg/dL (8.5-10.1) 8.5 mg/dL (8.5-10.1) Total Bilirubin 1.2 mg/dL (0.2-1.0) Direct Bilirubin 0.2 mg/dL (0.0-0.2) Aspartate Amino Transf (AST/SGOT) 29 U/L (15-37) Alanine Aminotransferase (ALT/SGPT) 44 U/L (16-63) Alkaline Phosphatase 58 U/L (46-116) Troponin I Quantitative < 0.017 ng/mL (0.000-0.055) Total Protein 7.9 g/dL (6.4-8.2) Albumin 4.1 g/dL (3.4-5.0) Urine Collection Type Unknown Urine Color Yellow Urine Clarity Clear Urine pH 6.0 Urine Specific [place] <=1.005 Urine Protein Negative mg/dL (NEG-TRACE) Urine Glucose (UA) Negative mg/dL (NEG) Urine Ketones (Stick) Negative mg/dL (NEG) Urine Blood Negative (NEG) Urine Nitrite Negative (NEG) Urine Bilirubin Negative (NEG) Urine Urobilinogen Dipstick 0.2 mg/dL (0.2 mg/dL) Urine Leukocyte Esterase Negative (NEG) Urine RBC 0 /HPF (0-2) Urine WBC Occ /HPF (0-4) Urine Bacteria 0 /HPF (0-FEW) Urine Opiates Screen Neg (NEG) Urine Methadone Screen Neg (NEG) Urine Barbiturates Neg (NEG) Urine Phencyclidine Screen Neg (NEG) Urine Amphetamine/Methamphetamine Neg (NEG) Urine Benzodiazepines Screen Neg (NEG) Urine Cocaine Screen Neg (NEG) Urine Cannabinoids Screen Pos (NEG) Urine Ethyl Alcohol Neg (NEG) Laboratory Tests Test 03/10/17 04:30 White Blood Count 8.1 x10^3/uL (4.0-11.0) Red Blood Count 5.22 x10^6/uL (4.30-5.70) Hemoglobin 15.5 g/dL (13.0-17.5) Hematocrit 43.9 % (39.0-53.0) Mean Corpuscular Volume 84 fL (79-100) Mean Corpuscular Hemoglobin 30 pg (25-35) Mean Corpuscular Hemoglobin Concent 35 g/dL (31-37) Red Cell Distribution Width 15.3 % (11.5-14.5) Platelet Count 191 x10^3/uL (140-400) Neutrophils (%) (Auto) 50 % (31-73) Lymphocytes (%) (Auto) 37 % (24-48) Monocytes (%) (Auto) 7 % (0-9) Eosinophils (%) (Auto) 5 % (0-3) Basophils (%) (Auto) 1 % (0-3) Neutrophils # (Auto) 4.0 x10^3uL (1.8-7.7) Lymphocytes # (Auto) 3.0 x10^3/uL (1.0-4.8) Monocytes # (Auto) 0.6 x10^3/uL (0.0-1.1) Eosinophils # (Auto) 0.4 x10^3/uL (0.0-0.7) Basophils # (Auto) 0.0 x10^3/uL (0.0-0.2) Sodium Level 142 mmol/L (136-145) Potassium Level 3.4 mmol/L (3.5-5.1) Chloride Level 105 mmol/L (98-107) Carbon Dioxide Level 25 mmol/L (21-32) Anion Gap 12 (6-14) Blood Urea Nitrogen 10 mg/dL (8-26) Creatinine 1.2 mg/dL (0.7-1.3) Estimated GFR (Cockcroft-Gault) 63.1 Glucose Level 83 mg/dL (70-99) Calcium Level 8.5 mg/dL (8.5-10.1) Medications Current Medications Sodium Chloride 1,000 ml @ 100 mls/hr Q10H IV Last administered on 03/10/17 05 :46; Start 03/09/17 at 09:30 Iohexol (Omnipaque 300 Mg/ml) 75 ml 1X ONCE IV Last administered on 03/09/17 09:45; Start 03/09/17 at 09:30; Stop 03/09/17 at 09:31; Status DC Info (Do NOT chart on this entry -- for MONITORING) 1 each PRN DAILY PRN MC SEE COMMENTS; Start 03/09/17 at 09:30; Stop 03/11/17 at 09:29 Labetalol HCl (Normodyne) 20 mg 1X ONCE IVP Last administered on 03/09/17 10: 19; Start 03/09/17 at 10:15; Stop 03/09/17 at 10:16; Status DC Ondansetron HCl (Zofran) 4 mg PRN Q8HRS PRN IV NAUSEA/VOMITING; Start 03/09/17 at 10:45; Stop 03/10/17 at 10:44; Status DC Morphine Sulfate 2 mg PRN Q2HR PRN IV PAIN; Start 03/09/17 at 10:45; Stop at 10:44; Status DC Aspirin (Children'S Aspirin) 324 mg 1X ONCE PO Last administered on 03/09/17 12:31; Start 03/09/17 at 11:00; Stop 03/09/17 at 11:01; Status DC Labetalol HCl (Normodyne) 20 mg PRN Q2HR PRN IVP HYPERTENSION, SEE COMMENTS; Start 03/09/17 at 11:30 Aspirin (Tejinder Aspirin) 325 mg DAILYWBKFT PO Last administered on 03/10/17 08: 38; Start 03/10/17 at 08:00 Atorvastatin Calcium (Lipitor) 20 mg QHS PO ; Start 03/09/17 at 21:00 Active Scripts Active Atorvastatin Calcium 20 Mg Tablet 20 Mg PO QHS 30 Days Aspirin 325 Mg Tablet 325 Mg PO DAILYWBKFT 30 Days Reported Losartan-Hctz 100-12.5 Mg Tab (Losartan/Hydrochlorothiazide) 1 Each Tablet 1 Tab PO DAILY Vitals/I & O Vital Sign - Last 24 Hours 03/09/17 03/09/17 03/09/17 03/09/17 14:25 14:25 14:57 19:00 Temp 98.2 98.2 98.1 98.2 98.2 98.1 Pulse 54 54 60 Resp 20 20 16 B/P (MAP) 159/97 (117) 159/97 (117) 157/89 (111) Pulse Ox 98 98 97 O2 Delivery Room Air Room Air Room Air Room Air 03/09/17 03/09/17 03/10/17 03/10/17 20:00 23:00 03:00 07:22 Temp 97.8 98.3 97.9 97.8 98.3 97.9 Pulse 58 51 54 Resp 16 16 16 B/P (MAP) 146/94 (111) 158/87 (110) 171/87 (115) Pulse Ox 98 96 92 O2 Delivery Room Air Room Air Room Air Room Air 03/10/17 03/10/17 08:05 11:14 Temp 98.2 98.2 Pulse 58 Resp 16 B/P (MAP) 131/106 (114) Pulse Ox 97 O2 Delivery Room Air Room Air PATTI SMITH MD Mar 10, 2017 13:57
[2017-03-10] MEDS ORDERED: MORPHINE SULFATE 2 MG/ML DISP.SYRIN. IV PRN (14:00)
[2017-03-10] MEDS ORDERED: ACETAMINOPHEN 325 MG TABLET. PO PRN (14:00)
[2017-03-10] MEDS ORDERED: hydrALAZINE 20 MG/ML VIAL. IVP PRN (14:00)
[2017-03-10] MEDS ORDERED: ONDANSETRON PF 4 MG/2 ML VIAL. IV PRN (14:00)
[2017-03-10] MEDS ORDERED: traMADol 50 MG TABLET PO PRN (14:00)
[2017-03-10] MEDS: LOSARTAN POTASSIUM 50 MG TABLET. PO SCH (14:00)
[2017-03-10] MEDS ORDERED: DOCUSATE SODIUM 100 MG CAPSULE. PO PRN (14:00)
[2017-03-10 15:00] VITALS: BP 145/95
--- NOTE | 2017-03-10 15:14 | PDOC2 ---
NEUROLOGY CONSULT Date of Admission Date of Admission DATE: 03/10/17 TIME: 14:56 Reason for Consult Reason for Consult: 03-09-2017 IMPRESSION: Acute posterior right almanza radiata infract. Subacute tiny infarct. Hypertensive urgency, BP 213/113 mmHg. Hypertensive encephalopathy. Slurred speech x 9 hours before coming to ER. Left VII palsy. Expressive aphasia. HTN, poorly controlled. DM Multiple old lacunar infarcts in bilateral supratentorial WM, henna, BG. Old left frontal lobe microhemorrhage/hemosiderin. Obesity Cannabinoids positive. RECOMMENDATIONS/PLAN: ASA 325 mg daily. Lipitor 20 mg HS. Carotid A Us + Doppler. Echo + bubble study. Fasting lipid panel in am. Speech evaluation. Swallow evaluation. Stroke protocol. HISTORY OF THE PRESENT ILLNESS: 56-y-old male patient with Hx of HTN but was not well controlled. He developed symptoms of slurred speech with asymmetric facial features to come to the ER of [facility] 9 hours after symptoms onset. No motor or sensory deficits complained. PAST MEDICAL HISTORY: Hypertension. Obesity. PAST SURGERY HISTORY: Appendectomy Rotator cuff surgery ALLERGIES: NKDA FAMILY HISTORY: Diabetes. SOCIAL HISTORY: He does not smoke. He drinks occasionally. He uses marijuana on regular basis. MEDICATIONS: Refer to MAR REVIEW OF SYSTEMS: Constitutional: No malnutrition, weight loss, cachexia. Head: No traumatic brain or head injury. Skin: No edema, or rash. Ear: No infection. Eyes: No vision loss or color blindness. Nose: No bleeding or purulent discharges. Hearing: No hearing decrease. Neck: No injury. Cardiac: HTN Pulmonary: No COPD. GI: No GI ulcer, GI bleeding. Urinary/genital: No dysuria, incontinence, urinary retention. Endocrinologic: Diabetes Mellitus, obesity. Skeletomuscular: No muscular atrophy, deformity. Neurological: see HP. Psychiatric: Denies drug use/abuse. Otherwise, not [id number] review of systems. PHYSICAL EXAMINATION: General appearance is in subacute distress. HEENT: Normocephalic and nontraumatic. Eyes, nose, ears, and throat are unremarkable. Neck is supple. No lymphadenopathy. No bruits are heard over the carotid artery. No crepitus. Cardiovascular: S1, S2, regular rate and rhythm. Pulmonary: Clear to auscultation bilaterally. Abdomen: Bowel sounds are positive. Abdomen is soft, nontender, and nondistended. Extremities: No rash, lesions, or edema. No restriction of range of motion NEUROLOGICAL EXAMINATION: Alert Oriented to time, place and person. Expressive aphasia. PERRL. EOMI. CN: no focal findings. Muscle tone: within normal. Muscle strength: 5 DTR: 2 Plantar reflex: Flexor response bilaterally Gait: not examined in bed. Sensory exam: no abnormal findings. No acute cerebellar signs elicited. F-T-N test fine. Current Medications Current Medications Current Medications Sodium Chloride 1,000 ml @ 75 mls/hr [id number] IV Last administered on 03/10/17 05:46; Start 03/09/17 at 09:30 Iohexol (Omnipaque 300 Mg/ml) 75 ml 1X ONCE IV Last administered on 03/09/17 09:45; Start 03/09/17 at 09:30; Stop 03/09/17 at 09:31; Status DC Info (Do NOT chart on this entry -- for MONITORING) 1 each PRN DAILY PRN MC SEE COMMENTS; Start 03/09/17 at 09:30; Stop 03/11/17 at 09:29 Labetalol HCl (Normodyne) 20 mg 1X ONCE IVP Last administered on 03/09/17 10: 19; Start 03/09/17 at 10:15; Stop 03/09/17 at 10:16; Status DC Ondansetron HCl (Zofran) 4 mg PRN Q8HRS PRN IV NAUSEA/VOMITING; Start 03/09/17 at 10:45; Stop 03/10/17 at 10:44; Status DC Morphine Sulfate 2 mg PRN Q2HR PRN IV PAIN; Start 03/09/17 at 10:45; Stop at 10:44; Status DC Aspirin (Children'S Aspirin) 324 mg 1X ONCE PO Last administered on 03/09/17 12:31; Start 03/09/17 at 11:00; Stop 03/09/17 at 11:01; Status DC Labetalol HCl (Normodyne) 20 mg PRN Q2HR PRN IVP HYPERTENSION, SEE COMMENTS; Start 03/09/17 at 11:30 Aspirin (Tejinder Aspirin) 325 mg DAILYWBKFT PO Last administered on 03/10/17 08: 38; Start 03/10/17 at 08:00 Atorvastatin Calcium (Lipitor) 20 mg QHS PO ; Start 03/09/17 at 21:00 Potassium Chloride 100 ml @ 100 mls/hr Q1H IV ; Start 03/10/17 at 14:00; Stop at 17:59 Losartan Potassium (Cozaar) 100 mg DAILY PO ; Start 03/10/17 at 14:00 Acetaminophen (Tylenol) 650 mg PRN Q6HRS PRN PO FEVER; Start 03/10/17 at 14:00 Ondansetron HCl (Zofran) 4 mg PRN Q6HRS PRN IV NAUSEA/VOMITING; Start 03/10/17 at 14:00 Morphine Sulfate 2 mg PRN Q2HR PRN IV PAIN; Start 03/10/17 at 14:00 Tramadol HCl (Ultram) 50 mg PRN Q6HRS PRN PO PAIN; Start 03/10/17 at 14:00 Hydralazine HCl (Apresoline) 10 mg PRN Q4HRS PRN IVP ELEVATED BP, SEE COMMENTS ; Start 03/10/17 at 14:00 Docusate Sodium (Colace) 100 mg PRN DAILY PRN PO CONSTIPATION; Start 03/10/17 at 14:00 Active Scripts Active Atorvastatin Calcium 20 Mg Tablet 20 Mg PO QHS 30 Days Aspirin 325 Mg Tablet 325 Mg PO DAILYWBKFT 30 Days Reported Losartan-Hctz 100-12.5 Mg Tab (Losartan/Hydrochlorothiazide) 1 Each Tablet 1 Tab PO DAILY Allergies Allergies: Coded Allergies: No Known Drug Allergies (Unverified , 03/08/17) Vitals VITALS Vital Signs Date Time Temp Pulse Resp B/P (MAP) Pulse Ox O2 Delivery O2 Flow Rate FiO2 03/10/17 11:14 98.2 58 16 131/106 (114) 97 Room Air 98.2 Labs Labs Laboratory Tests Test 03/09/17 08:56 03/09/17 09:08 03/09/17 09:34 03/10/17 04:30 Glucose (Fingerstick) 164 mg/dL (70-99) White Blood Count 6.2 x10^3/uL (4.0-11.0) 8.1 x10^3/uL (4.0-11.0) Red Blood Count 5.66 x10^6/uL (4.30-5.70) 5.22 x10^6/uL (4.30-5.70) Hemoglobin 17.2 g/dL (13.0-17.5) 15.5 g/dL (13.0-17.5) Hematocrit 47.5 % (39.0-53.0) 43.9 % (39.0-53.0) Mean Corpuscular Volume 84 fL (79-100) 84 fL (79-100) Mean Corpuscular Hemoglobin 30 pg (25-35) 30 pg (25-35) Mean Corpuscular Hemoglobin Concent 36 g/dL (31-37) 35 g/dL (31-37) Red Cell Distribution Width 15.0 % (11.5-14.5) 15.3 % (11.5-14.5) Platelet Count 219 x10^3/uL (140-400) 191 x10^3/uL (140-400) Neutrophils (%) (Auto) 62 % (31-73) 50 % (31-73) Lymphocytes (%) (Auto) 27 % (24-48) 37 % (24-48) Monocytes (%) (Auto) 6 % (0-9) 7 % (0-9) Eosinophils (%) (Auto) 4 % (0-3) 5 % (0-3) Basophils (%) (Auto) 1 % (0-3) 1 % (0-3) Neutrophils # (Auto) 3.8 x10^3uL (1.8-7.7) 4.0 x10^3uL (1.8-7.7) Lymphocytes # (Auto) 1.7 x10^3/uL (1.0-4.8) 3.0 x10^3/uL (1.0-4.8) Monocytes # (Auto) 0.4 x10^3/uL (0.0-1.1) 0.6 x10^3/uL (0.0-1.1) Eosinophils # (Auto) 0.3 x10^3/uL (0.0-0.7) 0.4 x10^3/uL (0.0-0.7) Basophils # (Auto) 0.0 x10^3/uL (0.0-0.2) 0.0 x10^3/uL (0.0-0.2) Sodium Level 138 mmol/L (136-145) 142 mmol/L (136-145) Potassium Level 4.2 mmol/L (3.5-5.1) 3.4 mmol/L (3.5-5.1) Chloride Level 100 mmol/L (98-107) 105 mmol/L (98-107) Carbon Dioxide Level 24 mmol/L (21-32) 25 mmol/L (21-32) Anion Gap 14 (6-14) 12 (6-14) Blood Urea Nitrogen 11 mg/dL (8-26) 10 mg/dL (8-26) Creatinine 1.2 mg/dL (0.7-1.3) 1.2 mg/dL (0.7-1.3) Estimated GFR (Cockcroft-Gault) 63.1 63.1 Glucose Level 188 mg/dL (70-99) 83 mg/dL (70-99) Calcium Level 9.2 mg/dL (8.5-10.1) 8.5 mg/dL (8.5-10.1) Total Bilirubin 1.2 mg/dL (0.2-1.0) Direct Bilirubin 0.2 mg/dL (0.0-0.2) Aspartate Amino Transf (AST/SGOT) 29 U/L (15-37) Alanine Aminotransferase (ALT/SGPT) 44 U/L (16-63) Alkaline Phosphatase 58 U/L (46-116) Troponin I Quantitative < 0.017 ng/mL (0.000-0.055) Total Protein 7.9 g/dL (6.4-8.2) Albumin 4.1 g/dL (3.4-5.0) Urine Collection Type Unknown Urine Color Yellow Urine Clarity Clear Urine pH 6.0 Urine Specific [place] <=1.005 Urine Protein Negative mg/dL (NEG-TRACE) Urine Glucose (UA) Negative mg/dL (NEG) Urine Ketones (Stick) Negative mg/dL (NEG) Urine Blood Negative (NEG) Urine Nitrite Negative (NEG) Urine Bilirubin Negative (NEG) Urine Urobilinogen Dipstick 0.2 mg/dL (0.2 mg/dL) Urine Leukocyte Esterase Negative (NEG) Urine RBC 0 /HPF (0-2) Urine WBC Occ /HPF (0-4) Urine Bacteria 0 /HPF (0-FEW) Urine Opiates Screen Neg (NEG) Urine Methadone Screen Neg (NEG) Urine Barbiturates Neg (NEG) Urine Phencyclidine Screen Neg (NEG) Urine Amphetamine/Methamphetamine Neg (NEG) Urine Benzodiazepines Screen Neg (NEG) Urine Cocaine Screen Neg (NEG) Urine Cannabinoids Screen Pos (NEG) Urine Ethyl Alcohol Neg (NEG) Laboratory Tests Test 03/10/17 04:30 White Blood Count 8.1 x10^3/uL (4.0-11.0) Red Blood Count 5.22 x10^6/uL (4.30-5.70) Hemoglobin 15.5 g/dL (13.0-17.5) Hematocrit 43.9 % (39.0-53.0) Mean Corpuscular Volume 84 fL (79-100) Mean Corpuscular Hemoglobin 30 pg (25-35) Mean Corpuscular Hemoglobin Concent 35 g/dL (31-37) Red Cell Distribution Width 15.3 % (11.5-14.5) Platelet Count 191 x10^3/uL (140-400) Neutrophils (%) (Auto) 50 % (31-73) Lymphocytes (%) (Auto) 37 % (24-48) Monocytes (%) (Auto) 7 % (0-9) Eosinophils (%) (Auto) 5 % (0-3) Basophils (%) (Auto) 1 % (0-3) Neutrophils # (Auto) 4.0 x10^3uL (1.8-7.7) Lymphocytes # (Auto) 3.0 x10^3/uL (1.0-4.8) Monocytes # (Auto) 0.6 x10^3/uL (0.0-1.1) Eosinophils # (Auto) 0.4 x10^3/uL (0.0-0.7) Basophils # (Auto) 0.0 x10^3/uL (0.0-0.2) Sodium Level 142 mmol/L (136-145) Potassium Level 3.4 mmol/L (3.5-5.1) Chloride Level 105 mmol/L (98-107) Carbon Dioxide Level 25 mmol/L (21-32) Anion Gap 12 (6-14) Blood Urea Nitrogen 10 mg/dL (8-26) Creatinine 1.2 mg/dL (0.7-1.3) Estimated GFR (Cockcroft-Gault) 63.1 Glucose Level 83 mg/dL (70-99) Calcium Level 8.5 mg/dL (8.5-10.1) TERESA ROY MD Mar 10, 2017 15:14
--- NOTE | 2017-03-10 15:17 | PDOC ---
PROGRESS NOTES Assessment Assessment Acute posterior right almanza radiata infract. Subacute tiny infarct. Hypertensive urgency, BP 213/113 mmHg. Hypertensive encephalopathy. Slurred speech x 9 hours before coming to ER. Not candidate of TPA. Left VII palsy. Expressive aphasia. HTN, poorly controlled. DM Multiple old lacunar infarcts in bilateral supratentorial WM, henna, BG. Old left frontal lobe microhemorrhage/hemosiderin. Obesity Cannabinoids positive. RECOMMENDATIONS/PLAN: ASA 325 mg daily. Lipitor 20 mg HS. Speech evaluation. Swallow evaluation. Fasting lipid panel in am if still here. Stroke protocol. Carotid A Us + Doppler; No high grade stenosis. Echo + bubble study: Unremarkable. HISTORY OF THE PRESENT ILLNESS: 56-y-old male patient with Hx of HTN but was not well controlled. He developed symptoms of slurred speech with asymmetric facial features to come to the ER of [facility] 9 hours after symptoms onset. No motor or sensory deficits complained. PAST MEDICAL HISTORY: Hypertension. Obesity. PAST SURGERY HISTORY: Appendectomy Rotator cuff surgery ALLERGIES: NKDA FAMILY HISTORY: Diabetes. SOCIAL HISTORY: He does not smoke. He drinks occasionally. He uses marijuana on regular basis. MEDICATIONS: Refer to [facility] REVIEW OF SYSTEMS: Constitutional: No malnutrition, weight loss, cachexia. Head: No traumatic brain or head injury. Skin: No edema, or rash. Ear: No infection. Eyes: No vision loss or color blindness. Nose: No bleeding or purulent discharges. Hearing: No hearing decrease. Neck: No injury. Cardiac: HTN Pulmonary: No COPD. GI: No GI ulcer, GI bleeding. Urinary/genital: No dysuria, incontinence, urinary retention. Endocrinologic: Diabetes Mellitus, obesity. Skeletomuscular: No muscular atrophy, deformity. Neurological: see HP. Psychiatric: Denies drug use/abuse. Otherwise, not [id number] review of systems. PHYSICAL EXAMINATION: General appearance is in subacute distress. HEENT: Normocephalic and nontraumatic. Eyes, nose, ears, and throat are unremarkable. Neck is supple. No lymphadenopathy. No bruits are heard over the carotid artery. No crepitus. Cardiovascular: S1, S2, regular rate and rhythm. Pulmonary: Clear to auscultation bilaterally. Abdomen: Bowel sounds are positive. Abdomen is soft, nontender, and nondistended. Extremities: No rash, lesions, or edema. No restriction of range of motion NEUROLOGICAL EXAMINATION: Alert Oriented to time, place and person. Expressive aphasia. PERRL. EOMI. CN: no focal findings. Muscle tone: within normal. Muscle strength: 5 DTR: 2 Plantar reflex: Flexor response bilaterally Gait: not examined in bed. Sensory exam: no abnormal findings. No acute cerebellar signs elicited. F-T-N test fine. Objective Objective Vital Signs Date Time Temp Pulse Resp B/P (MAP) Pulse Ox O2 Delivery O2 Flow Rate FiO2 03/10/17 11:14 98.2 58 16 131/106 (114) 97 Room Air 98.2 Vitals Signs Vitals VS - Last 72 Hours, by Label Date Time Temp Pulse Resp B/P (MAP) Pulse Ox O2 Delivery O2 Flow Rate FiO2 03/10/17 11:14 98.2 58 16 131/106 (114) 97 Room Air 98.2 03/10/17 08:05 Room Air 03/10/17 07:22 97.9 54 16 171/87 (115) 92 Room Air 97.9 03/10/17 03:00 98.3 51 16 158/87 (110) 96 Room Air 98.3 03/09/17 23:00 97.8 58 16 146/94 (111) 98 Room Air 97.8 03/09/17 20:00 Room Air 03/09/17 19:00 98.1 60 16 157/89 (111) 97 Room Air 98.1 03/09/17 14:57 Room Air 03/09/17 14:25 98.2 54 20 159/97 (117) 98 Room Air 98.2 03/09/17 14:25 98.2 54 20 159/97 (117) 98 Room Air 98.2 03/09/17 13:30 58 19 144/82 (102) 97 Room Air 03/09/17 13:00 60 22 152/75 (100) 98 Room Air 03/09/17 12:29 59 21 162/95 (117) 97 Room Air 03/09/17 11:46 61 21 169/110 (129) 96 Room Air 03/09/17 11:16 60 23 194/110 (138) 96 Room Air 03/09/17 10:46 64 25 183/113 (136) 96 Room Air 03/09/17 10:19 75 181/108 03/09/17 10:00 67 181/108 (132) 03/09/17 09:30 74 18 213/113 (146) 98 Room Air 03/09/17 09:00 84 26 191/99 (129) 98 Room Air 03/09/17 08:47 97.8 90 25 191/99 (129) 98 Room Air 97.8 Laboratory Laboratory Laboratory Tests Test 03/10/17 04:30 White Blood Count 8.1 x10^3/uL (4.0-11.0) Red Blood Count 5.22 x10^6/uL (4.30-5.70) Hemoglobin 15.5 g/dL (13.0-17.5) Hematocrit 43.9 % (39.0-53.0) Mean Corpuscular Volume 84 fL (79-100) Mean Corpuscular Hemoglobin 30 pg (25-35) Mean Corpuscular Hemoglobin Concent 35 g/dL (31-37) Red Cell Distribution Width 15.3 % (11.5-14.5) Platelet Count 191 x10^3/uL (140-400) Neutrophils (%) (Auto) 50 % (31-73) Lymphocytes (%) (Auto) 37 % (24-48) Monocytes (%) (Auto) 7 % (0-9) Eosinophils (%) (Auto) 5 % (0-3) Basophils (%) (Auto) 1 % (0-3) Neutrophils # (Auto) 4.0 x10^3uL (1.8-7.7) Lymphocytes # (Auto) 3.0 x10^3/uL (1.0-4.8) Monocytes # (Auto) 0.6 x10^3/uL (0.0-1.1) Eosinophils # (Auto) 0.4 x10^3/uL (0.0-0.7) Basophils # (Auto) 0.0 x10^3/uL (0.0-0.2) Sodium Level 142 mmol/L (136-145) Potassium Level 3.4 mmol/L (3.5-5.1) Chloride Level 105 mmol/L (98-107) Carbon Dioxide Level 25 mmol/L (21-32) Anion Gap 12 (6-14) Blood Urea Nitrogen 10 mg/dL (8-26) Creatinine 1.2 mg/dL (0.7-1.3) Estimated GFR (Cockcroft-Gault) 63.1 Glucose Level 83 mg/dL (70-99) Calcium Level 8.5 mg/dL (8.5-10.1) Medication Medications Current Medications Acetaminophen (Tylenol) 650 mg PRN Q6HRS PRN PO FEVER; Start 03/10/17 at 14:00 Aspirin (Tejinder Aspirin) 325 mg DAILYWBKFT PO Last administered on 03/10/17t 08: 38; Start 03/10/17 at 08:00 Atorvastatin Calcium (Lipitor) 20 mg QHS PO ; Start 03/09/17 at 21:00 Docusate Sodium (Colace) 100 mg PRN DAILY PRN PO CONSTIPATION; Start 03/10/17 at 14:00 Hydralazine HCl (Apresoline) 10 mg PRN Q4HRS PRN IVP ELEVATED BP, SEE COMMENTS ; Start 03/10/17 at 14:00 Losartan Potassium (Cozaar) 100 mg DAILY PO ; Start 03/10/17 at 14:00 Morphine Sulfate 2 mg PRN Q2HR PRN IV PAIN; Start 03/10/17 at 14:00 Ondansetron HCl (Zofran) 4 mg PRN Q6HRS PRN IV NAUSEA/VOMITING; Start 03/10/17 at 14:00 Potassium Chloride 100 ml @ 100 mls/hr Q1H IV ; Start 03/10/17 at 14:00; Stop at 17:59 Tramadol HCl (Ultram) 50 mg PRN Q6HRS PRN PO PAIN; Start 03/10/17 at 14:00 Comment Review of Relevant I have reviewed the following items jeremiah (where applicable) has been applied. TERESA ROY MD Mar 10, 2017 15:16
[2017-03-10] MEDS: POTASSIUM CHLORIDE 10MEQ 100 ML IV SCH ×4 (15:32→18:16)
[2017-03-10 19:00] VITALS: BP 159/105
[2017-03-10] MEDS: ATORVASTATIN CALCIUM 20 MG TABLET PO SCH (20:43)
[2017-03-10 23:04] VITALS: BP 160/91
[2017-03-11 02:48] VITALS: BP 157/91
[2017-03-11] MEDS: IV NORMAL SALINE 1000ML BAG 1,000 ML IV SCH (03:54)
[2017-03-11 06:03] LABS: BASO # 0.1 x10^3/uL (0.0-0.2); BASO % 1 % (0-3); EOS % 5 % (0-3); HEMATOCRIT 43.4 % (39.0-53.0); HEMOGLOBIN 15.3 g/dL (13.0-17.5); LYMPH # 2.3 x10^3/uL (1.0-4.8); LYMPH % 27 % (24-48); MEAN CORPUSCULAR HEMOGLOBIN 29 pg (25-35); MEAN CORPUSCULAR HGB CONC 35 g/dL (31-37); MEAN CORPUSCULAR VOLUME 84 fL (79-100); MONO % 6 % (0-9); NEUT % 61 % (31-73); PLATELET COUNT 193 x10^3/uL (140-400); RED CELL DISTRIBUTION WIDTH 15.3 % (11.5-14.5); WHITE BLOOD COUNT 8.7 x10^3/uL (4.0-11.0)
[2017-03-11 06:25] LABS: CALCIUM 8.5 mg/dL (8.5-10.1); CREATININE 1.1 mg/dL (0.7-1.3); GFR 69.8; POTASSIUM 3.7 mmol/L (3.5-5.1)
[2017-03-11 06:28] LABS: CHOLESTEROL/HDL RATIO 3.1
[2017-03-11 07:16] VITALS: BP 167/99
[2017-03-11] MEDS: LOSARTAN POTASSIUM 50 MG TABLET. PO SCH (08:12)
[2017-03-11] MEDS: ASPIRIN 325 MG TABLET PO SCH (08:12)
[2017-03-11] MEDS ORDERED: BARIUM SULFATE 40% (APPLE) 148 GM PWD. PO ONE (10:00)
--- NOTE | 2017-03-11 10:18 | RAD ---
Exam performed: Video dysphasia exam. History: Dysphagia Findings: The study was performed in conjunction with the speech pathologist. Barium of varying consistencies including thin, pudding, mixed consistency barium were administered to the patient and swallowing was recorded on video and reviewed. There is normal anteroposterior transfer of the bolus. Normal pharyngeal contractions and epiglottic inversion is noted. There is minimal laryngeal penetration identified with the swallowing of thin liquids with straw. Otherwise no evidence of deep laryngeal penetration or aspiration noted. Impression: 1. Minimal laryngeal penetration identified with the swallowing of thin liquids with straw. Otherwise no evidence of deep laryngeal penetration or aspiration noted. 2. Please see speech pathology report for further details. Total fluoroscopy time 1.4 minutes. No fluoroscopic images were obtained.
[2017-03-11 11:31] VITALS: BP 156/89
[2017-03-11] MEDS ORDERED: LOSA50TA2 PO (12:43)
--- NOTE | 2017-03-11 14:55 | PDOC ---
PROGRESS NOTES Assessment Assessment Acute posterior right almanza radiata infract. Subacute tiny infarct. Hypertensive urgency, BP 213/113 mmHg. Hypertensive encephalopathy. Slurred speech x 9 hours before coming to ER. Not candidate of TPA. Left VII palsy. Expressive aphasia. HTN, poorly controlled. DM Multiple old lacunar infarcts in bilateral supratentorial WM, henna, BG. Old left frontal lobe microhemorrhage/hemosiderin. Obesity Cannabinoids positive. RECOMMENDATIONS/PLAN: ASA 325 mg daily. Lipitor 20 mg HS. Speech therapy. FU with PCP. FU with with Dr. Jimenez in [facility]rology Clinic in 1 month. Carotid A Us + Doppler; No high grade stenosis. Echo + bubble study: Unremarkable. HISTORY OF THE PRESENT ILLNESS: 56-y-old male patient with Hx of HTN but was not well controlled. He developed symptoms of slurred speech with asymmetric facial features to come to the ER of [facility] 9 hours after symptoms onset. No motor or sensory deficits complained. PAST MEDICAL HISTORY: Hypertension. Obesity. PAST SURGERY HISTORY: Appendectomy Rotator cuff surgery ALLERGIES: NKDA FAMILY HISTORY: Diabetes. SOCIAL HISTORY: He does not smoke. He drinks occasionally. He uses marijuana on regular basis. MEDICATIONS: Refer to [facility] REVIEW OF SYSTEMS: Constitutional: No malnutrition, weight loss, cachexia. Head: No traumatic brain or head injury. Skin: No edema, or rash. Ear: No infection. Eyes: No vision loss or color blindness. Nose: No bleeding or purulent discharges. Hearing: No hearing decrease. Neck: No injury. Cardiac: HTN Pulmonary: No COPD. GI: No GI ulcer, GI bleeding. Urinary/genital: No dysuria, incontinence, urinary retention. Endocrinologic: Diabetes Mellitus, obesity. Skeletomuscular: No muscular atrophy, deformity. Neurological: see HP. Psychiatric: Denies drug use/abuse. Otherwise, not [id number] review of systems. PHYSICAL EXAMINATION: General appearance is in subacute distress. HEENT: Normocephalic and nontraumatic. Eyes, nose, ears, and throat are unremarkable. Neck is supple. No lymphadenopathy. No bruits are heard over the carotid artery. No crepitus. Cardiovascular: S1, S2, regular rate and rhythm. Pulmonary: Clear to auscultation bilaterally. Abdomen: Bowel sounds are positive. Abdomen is soft, nontender, and nondistended. Extremities: No rash, lesions, or edema. No restriction of range of motion NEUROLOGICAL EXAMINATION: Alert Oriented to time, place and person. Expressive aphasia, improved than before. PERRL. EOMI. CN: no focal findings. Muscle tone: within normal. Muscle strength: 5 DTR: 2 Plantar reflex: Flexor response bilaterally Gait: not examined in bed. Sensory exam: no abnormal findings. No acute cerebellar signs elicited. F-T-N test fine. Objective Objective Vital Signs Date Time Temp Pulse Resp B/P (MAP) Pulse Ox O2 Delivery O2 Flow Rate FiO2 03/11/17 11:31 97.7 58 16 156/89 (111) 97 Room Air 97.7 Vitals Signs Vitals VS - Last 72 Hours, by Label Date Time Temp Pulse Resp B/P (MAP) Pulse Ox O2 Delivery O2 Flow Rate FiO2 03/11/17 11:31 97.7 58 16 156/89 (111) 97 Room Air 97.7 03/11/17 08:12 65 167/99 03/11/17 08:00 Room Air 03/11/17 07:16 97.7 65 16 167/99 (121) 95 Room Air 97.7 03/11/17 02:48 98.1 53 16 157/91 (113) 97 Room Air 98.1 03/10/17 23:04 98.1 52 14 160/91 (114) 94 Room Air 98.1 03/10/17 20:00 Room Air 03/10/17 19:00 97.5 57 14 159/105 (123) 100 Room Air 97.5 03/10/17 15:00 98.3 52 16 145/95 (112) 97 Room Air 98.3 03/10/17 11:14 98.2 58 16 131/106 (114) 97 Room Air 98.2 03/10/17 08:05 Room Air 03/10/17 07:22 97.9 54 16 171/87 (115) 92 Room Air 97.9 Laboratory Laboratory Laboratory Tests Test 03/11/17 04:50 White Blood Count 8.7 x10^3/uL (4.0-11.0) Red Blood Count 5.20 x10^6/uL (4.30-5.70) Hemoglobin 15.3 g/dL (13.0-17.5) Hematocrit 43.4 % (39.0-53.0) Mean Corpuscular Volume 84 fL (79-100) Mean Corpuscular Hemoglobin 29 pg (25-35) Mean Corpuscular Hemoglobin Concent 35 g/dL (31-37) Red Cell Distribution Width 15.3 % (11.5-14.5) Platelet Count 193 x10^3/uL (140-400) Neutrophils (%) (Auto) 61 % (31-73) Lymphocytes (%) (Auto) 27 % (24-48) Monocytes (%) (Auto) 6 % (0-9) Eosinophils (%) (Auto) 5 % (0-3) Basophils (%) (Auto) 1 % (0-3) Neutrophils # (Auto) 5.3 x10^3uL (1.8-7.7) Lymphocytes # (Auto) 2.3 x10^3/uL (1.0-4.8) Monocytes # (Auto) 0.5 x10^3/uL (0.0-1.1) Eosinophils # (Auto) 0.5 x10^3/uL (0.0-0.7) Basophils # (Auto) 0.1 x10^3/uL (0.0-0.2) Sodium Level 142 mmol/L (136-145) Potassium Level 3.7 mmol/L (3.5-5.1) Chloride Level 107 mmol/L (98-107) Carbon Dioxide Level 25 mmol/L (21-32) Anion Gap 10 (6-14) Blood Urea Nitrogen 9 mg/dL (8-26) Creatinine 1.1 mg/dL (0.7-1.3) Estimated GFR (Cockcroft-Gault) 69.8 Glucose Level 88 mg/dL (70-99) Calcium Level 8.5 mg/dL (8.5-10.1) Triglycerides Level 123 mg/dL (0-150) Cholesterol Level 171 mg/dL (0-200) LDL Cholesterol, Calculated 90 mg/dL (0-100) VLDL Cholesterol, Calculated 25 mg/dL (0-40) Non-HDL Cholesterol Calculated 115 mg/dL (0-129) HDL Cholesterol 56 mg/dL (40-60) Cholesterol/HDL Ratio 3.1 Medication Medications Current Medications Barium Sulfate (Varibar Thin Liquid Apple) 148 gm 1X ONCE PO Last administered on 03/11/17t 10:09; Start 03/11/17 at 10:00; Stop 03/11/17 at 10:02; Status DC Comment Review of Relevant I have reviewed the following items jeremiah (where applicable) has been applied. TERESA JIMENEZ MD Mar 11, 2017 14:55
--- NOTE | 2017-03-11 15:41 | PDOC3 ---
Discharge Summary [facility]GED WITH [facility] Date of Admission: Mar 09, 2017 Discharge Date: Mar 11, 2017 Admitting Diagnosis acute infarct of the posterior right almanza radiata bl old infarct drug abuse with marijuana HTn urgency hypokalemia Problems: Final Diagnosis CONSULTS neuro Brief Hospital Course Mr. Crawford is a 56 old M, marijuana user, HTN uncontrolled, comes for slurry speech, was found left facial droop. MRI showed right almanza acute stroke and bl old stroke. pt passed swallow on dysphagia 2 diet, still slurry speech, dc home with ASA, lisipitor, losartan. fu with outpt OT FOR SPEECH therapy. dc time 35min. Physical Exam slurry speech, left facial droop General: Alert, Oriented X3, Cooperative Heart: Regular rate, Normal S1, Normal S2 Lungs: Clear Abdomen: Normal bowel sounds, Soft Extremities: No clubbing, No cyanosis Skin: No rashes Problems: Disposition home CONDITION AT DISCHARGE: Improved Diet dysphagia 2 Scheduled Aspirin (Aspirin), 325 MG PO DAILYWBKFT Atorvastatin Calcium (Atorvastatin Calcium), 20 MG PO QHS Losartan/Hydrochlorothiazide (Losartan-Hctz 100-12.5 Mg Tab), 1 TAB PO DAILY, ( Reported) Follow Up neuro in 1 month PATTI SMITH MD Mar 11, 2017 15:41
--- NOTE | 2017-03-11 16:51 | PDOC2 ---
CONSULT Date of Consult Date of Consult DATE: 03/11/17 TIME: 16:45 Reason for Consult Reason for Consult: CVA and bradycardia Referring Physician Referring Physician: Dr. Lewis Identification/Chief Complaint Chief Complaint Slurred speech Problems: Source Source: Chart review, Patient History of Present Illness Reason for Visit: 56-year-old male presented with slurred speech and facial droop and was diagnosed with acute posterior right almanza radiata infract and malignant hypertension. Cardiology has been consulted for bradycardic episodes on telemetry. Patient denied any dizziness, lightheadedness or syncope. He also denied any chest pain, orthopnea/PND or palpitations. Past Medical History Past Medical History Hypertension Hyperlipidemia Past Surgical History Past Surgical History Appendectomy Rotator cuff surgery Family History Family History Diabetes Social History Social History Patient admitted to occasional marijuana use but denied any alcohol or drug use Current Problem List Problem List Problems Medical Problems: (1) Stroke-like symptoms Status: Acute Current Medications Current Medications Current Medications Sodium Chloride 1,000 ml @ 75 mls/hr [id number] IV Last administered on 03/11/17 03:54; Start 03/09/17 at 09:30; Stop 03/11/17 at 14:27; Status DC Iohexol (Omnipaque 300 Mg/ml) 75 ml 1X ONCE IV Last administered on 03/09/17 09:45; Start 03/09/17 at 09:30; Stop 03/09/17 at 09:31; Status DC Info (Do NOT chart on this entry -- for MONITORING) 1 each PRN DAILY PRN MC SEE COMMENTS; Start 03/09/17 at 09:30; Stop 03/11/17 at 09:29; Status DC Labetalol HCl (Normodyne) 20 mg 1X ONCE IVP Last administered on 03/09/17 10: 19; Start 03/09/17 at 10:15; Stop 03/09/17 at 10:16; Status DC Ondansetron HCl (Zofran) 4 mg PRN Q8HRS PRN IV NAUSEA/VOMITING; Start 03/09/17 at 10:45; Stop 03/10/17 at 10:44; Status DC Morphine Sulfate 2 mg PRN Q2HR PRN IV PAIN; Start 03/09/17 at 10:45; Stop at 10:44; Status DC Aspirin (Children'S Aspirin) 324 mg 1X ONCE PO Last administered on 03/09/17 12:31; Start 03/09/17 at 11:00; Stop 03/09/17 at 11:01; Status DC Labetalol HCl (Normodyne) 20 mg PRN Q2HR PRN IVP HYPERTENSION, SEE COMMENTS; Start 03/09/17 at 11:30; Stop 03/11/17 at 14:27; Status DC Aspirin (Tejinder Aspirin) 325 mg DAILYWBKFT PO Last administered on 03/11/17 08: 12; Start 03/10/17 at 08:00; Stop 03/11/17 at 14:27; Status DC Atorvastatin Calcium (Lipitor) 20 mg QHS PO ; Start 03/09/17 at 21:00; Stop at 14:27; Status DC Potassium Chloride 100 ml @ 100 mls/hr Q1H IV Last administered on 03/10/17 18 :16; Start 03/10/17 at 14:00; Stop 03/10/17 at 17:59; Status DC Losartan Potassium (Cozaar) 100 mg DAILY PO Last administered on 03/11/17 08:12 ; Start 03/10/17 at 14:00; Stop 03/11/17 at 14:27; Status DC Acetaminophen (Tylenol) 650 mg PRN Q6HRS PRN PO FEVER; Start 03/10/17 at 14:00; Stop 03/11/17 at 14:27; Status DC Ondansetron HCl (Zofran) 4 mg PRN Q6HRS PRN IV NAUSEA/VOMITING; Start 03/10/17 at 14:00; Stop 03/11/17 at 14:27; Status DC Morphine Sulfate 2 mg PRN Q2HR PRN IV PAIN; Start 03/10/17 at 14:00; Stop at 14:27; Status DC Tramadol HCl (Ultram) 50 mg PRN Q6HRS PRN PO PAIN; Start 03/10/17 at 14:00; Stop 03/11/17 at 14:27; Status DC Hydralazine HCl (Apresoline) 10 mg PRN Q4HRS PRN IVP ELEVATED BP, SEE COMMENTS ; Start 03/10/17 at 14:00; Stop 03/11/17 at 14:27; Status DC Docusate Sodium (Colace) 100 mg PRN DAILY PRN PO CONSTIPATION; Start 03/10/17 at 14:00; Stop 03/11/17 at 14:27; Status DC Barium Sulfate (Varibar Thin Liquid Apple) 148 gm 1X ONCE PO Last administered on 03/11/17t 10:09; Start 03/11/17 at 10:00; Stop 03/11/17 at 10:02; Status DC Active Scripts Active Atorvastatin Calcium 20 Mg Tablet 20 Mg PO QHS 30 Days Aspirin 325 Mg Tablet 325 Mg PO DAILYWBKFT 30 Days Reported Losartan-Hctz 100-12.5 Mg Tab (Losartan/Hydrochlorothiazide) 1 Each Tablet 1 Tab PO DAILY Allergies Allergies: Coded Allergies: No Known Drug Allergies (Unverified , 03/08/17) ROS PSYCHOLOGICAL ROS: No: Hallucinations Eyes: No Loss of vision HEENT: No: Epistaxis Respiratory: No: Hemoptysis Cardiovascular: No Chest Pain, No Palpitations Gastrointestinal: No Vomiting, No Diarrhea Genitourinary: No Hematuria Neurological: Yes Speech Problems, No Seizures Skin: No Rash Physical Exam General: Alert, No acute distress HEENT: Atraumatic, PERRLA Lungs: Clear to auscultation Heart: Regular rate Abdomen: Soft, No tenderness Extremities: No edema Skin: No rashes Neuro: Normal gait Psych/Mental Status: Mental status NL Vitals VITALS Vital Signs Date Time Temp Pulse Resp B/P (MAP) Pulse Ox O2 Delivery O2 Flow Rate FiO2 03/11/17 11:31 97.7 58 16 156/89 (111) 97 Room Air 97.7 Labs Labs Laboratory Tests Test 03/10/17 04:30 03/11/17 04:50 White Blood Count 8.1 x10^3/uL (4.0-11.0) 8.7 x10^3/uL (4.0-11.0) Red Blood Count 5.22 x10^6/uL (4.30-5.70) 5.20 x10^6/uL (4.30-5.70) Hemoglobin 15.5 g/dL (13.0-17.5) 15.3 g/dL (13.0-17.5) Hematocrit 43.9 % (39.0-53.0) 43.4 % (39.0-53.0) Mean Corpuscular Volume 84 fL (79-100) 84 fL (79-100) Mean Corpuscular Hemoglobin 30 pg (25-35) 29 pg (25-35) Mean Corpuscular Hemoglobin Concent 35 g/dL (31-37) 35 g/dL (31-37) Red Cell Distribution Width 15.3 % (11.5-14.5) 15.3 % (11.5-14.5) Platelet Count 191 x10^3/uL (140-400) 193 x10^3/uL (140-400) Neutrophils (%) (Auto) 50 % (31-73) 61 % (31-73) Lymphocytes (%) (Auto) 37 % (24-48) 27 % (24-48) Monocytes (%) (Auto) 7 % (0-9) 6 % (0-9) Eosinophils (%) (Auto) 5 % (0-3) 5 % (0-3) Basophils (%) (Auto) 1 % (0-3) 1 % (0-3) Neutrophils # (Auto) 4.0 x10^3uL (1.8-7.7) 5.3 x10^3uL (1.8-7.7) Lymphocytes # (Auto) 3.0 x10^3/uL (1.0-4.8) 2.3 x10^3/uL (1.0-4.8) Monocytes # (Auto) 0.6 x10^3/uL (0.0-1.1) 0.5 x10^3/uL (0.0-1.1) Eosinophils # (Auto) 0.4 x10^3/uL (0.0-0.7) 0.5 x10^3/uL (0.0-0.7) Basophils # (Auto) 0.0 x10^3/uL (0.0-0.2) 0.1 x10^3/uL (0.0-0.2) Sodium Level 142 mmol/L (136-145) 142 mmol/L (136-145) Potassium Level 3.4 mmol/L (3.5-5.1) 3.7 mmol/L (3.5-5.1) Chloride Level 105 mmol/L (98-107) 107 mmol/L (98-107) Carbon Dioxide Level 25 mmol/L (21-32) 25 mmol/L (21-32) Anion Gap 12 (6-14) 10 (6-14) Blood Urea Nitrogen 10 mg/dL (8-26) 9 mg/dL (8-26) Creatinine 1.2 mg/dL (0.7-1.3) 1.1 mg/dL (0.7-1.3) Estimated GFR (Cockcroft-Gault) 63.1 69.8 Glucose Level 83 mg/dL (70-99) 88 mg/dL (70-99) Calcium Level 8.5 mg/dL (8.5-10.1) 8.5 mg/dL (8.5-10.1) Triglycerides Level 123 mg/dL (0-150) Cholesterol Level 171 mg/dL (0-200) LDL Cholesterol, Calculated 90 mg/dL (0-100) VLDL Cholesterol, Calculated 25 mg/dL (0-40) Non-HDL Cholesterol Calculated 115 mg/dL (0-129) HDL Cholesterol 56 mg/dL (40-60) Cholesterol/HDL Ratio 3.1 Laboratory Tests Test 03/11/17 04:50 White Blood Count 8.7 x10^3/uL (4.0-11.0) Red Blood Count 5.20 x10^6/uL (4.30-5.70) Hemoglobin 15.3 g/dL (13.0-17.5) Hematocrit 43.4 % (39.0-53.0) Mean Corpuscular Volume 84 fL (79-100) Mean Corpuscular Hemoglobin 29 pg (25-35) Mean Corpuscular Hemoglobin Concent 35 g/dL (31-37) Red Cell Distribution Width 15.3 % (11.5-14.5) Platelet Count 193 x10^3/uL (140-400) Neutrophils (%) (Auto) 61 % (31-73) Lymphocytes (%) (Auto) 27 % (24-48) Monocytes (%) (Auto) 6 % (0-9) Eosinophils (%) (Auto) 5 % (0-3) Basophils (%) (Auto) 1 % (0-3) Neutrophils # (Auto) 5.3 x10^3uL (1.8-7.7) Lymphocytes # (Auto) 2.3 x10^3/uL (1.0-4.8) Monocytes # (Auto) 0.5 x10^3/uL (0.0-1.1) Eosinophils # (Auto) 0.5 x10^3/uL (0.0-0.7) Basophils # (Auto) 0.1 x10^3/uL (0.0-0.2) Sodium Level 142 mmol/L (136-145) Potassium Level 3.7 mmol/L (3.5-5.1) Chloride Level 107 mmol/L (98-107) Carbon Dioxide Level 25 mmol/L (21-32) Anion Gap 10 (6-14) Blood Urea Nitrogen 9 mg/dL (8-26) Creatinine 1.1 mg/dL (0.7-1.3) Estimated GFR (Cockcroft-Gault) 69.8 Glucose Level 88 mg/dL (70-99) Calcium Level 8.5 mg/dL (8.5-10.1) Triglycerides Level 123 mg/dL (0-150) Cholesterol Level 171 mg/dL (0-200) LDL Cholesterol, Calculated 90 mg/dL (0-100) VLDL Cholesterol, Calculated 25 mg/dL (0-40) Non-HDL Cholesterol Calculated 115 mg/dL (0-129) HDL Cholesterol 56 mg/dL (40-60) Cholesterol/HDL Ratio 3.1 Assessment/Plan Assessment/Plan 1. Acute posterior right almanza radiata CVA: Carotid arterial duplex scan did not show any significant stenosis. Telemetry did not show any other arrhythmias other than sinus bradycardia. 2-D echo showed normal LV function and bubble study negative for intracardiac shunt. We will plan for event monitor as an outpatient to rule out atrial fibrillation as an etiology. Neurology team following. 2. Sinus bradycardia: Most probably vagal. Patient not on any rate lowering medications. Plan for event monitor as stated above. 3. Hyperlipidemia: Continue statins Okay for discharge from cardiac standpoint. AGNES HENNESSY MD Mar 11, 2017 16:51
== END 2017-03-11 14:27 | disposition home or self-care (01) ==
LOC: ER 08:40 → 6 SOUTH 10:05
PROVIDERS: ADMIT Internal Medicine; ATTEND Internal Medicine
DX: I63.9 Cerebral infarction, unspecified (principal); R47.01 Aphasia; I16.0 Hypertensive urgency; I67.4 Hypertensive encephalopathy; E11.9 Type 2 diabetes mellitus without complications; I10 Essential (primary) hypertension; E66.9 Obesity, unspecified; F12.10 Cannabis abuse, uncomplicated; E78.5 Hyperlipidemia, unspecified; E87.6 Hypokalemia; R00.1 Bradycardia, unspecified; Z79.82 Long term (current) use of aspirin; Z79.899 Other long term (current) drug therapy; Z83.3 Family history of diabetes mellitus
CPT/HCPCS: 36415; 70450; 70496; 70498; 70551; 74230; 80048; 80061; 80076; 80307; 81001; 82962; 84484; 85025; 92610; 92611; 93005; 93880; 96361; 96365; 96366; 96375; 97161; 97165; 99285; C8929; G0378; G8987; G8988; G8989; J3480; J3490; J7030; Q9967; G0379; G0479

== ENCOUNTER → 2018-06-21 | Outpatient (CLI) | payer OTHER ==
[~2018-06-21] MED LIST: ASPI325T8 PO; ATOR20TA58 PO; LOSA-73 PO; LOSA1TAB25 PO
== END | disposition home or self-care (01) ==
LOC: SPEC 17:27
PROVIDERS: ATTEND Podiatrist Foot & Ankle Surgery
DX: M20.22 Hallux rigidus, left foot (principal)
CPT/HCPCS: 87071; 87075

== ENCOUNTER 2019-08-18 05:45 | Emergency (ER) | payer SELFPAY ==
[~2019-08-18] VITALS: Ht 167.6 cm; Wt 95.0 kg
--- NOTE | 2019-08-18 06:16 | PHYS DOC ---
Past Medical History Past Medical History: Hypertension Past Surgical History: Appendectomy Additional Past Surgical Histo: ROTATOR CUFF Smoking Status: Never Smoker Alcohol Use: Occasionally Drug Use: Marijuana Adult General Chief Complaint Chief Complaint: MECHANICAL FALL HPI HPI Patient is a 58 year old male who is brought to the ER by EMS secondary to a reported fall around 1:00 this morning with the inability to get himself up and back into the house. Patient reportedly drinks alcohol nightly. He is only complaint today is left shoulder pain. States he has had 2 rotator cuff surgeries in the past. He does smell slightly intoxicated. He does not appear to be excessively cold at this time. When asked why the patient did not get up on his own he states that he could not. His pain is moderate and worse with movement that is limited secondary to pain. Review of Systems Review of Systems All other ROS is negative unless otherwise stated in HPI Current Medications Current Medications Current Medications Medications (Trade) Dose Ordered Sig/Adam Start Time Stop Time Status Last Admin Dose Admin Acetaminophen/ Hydrocodone Bitart (Lortab 5/325) 1 tab 1X ONCE 08/18/19 06:45 08/18/19 06:46 DC 08/18/19 06:39 1 TAB Fentanyl Citrate (Fentanyl 2ml Vial) 50 mcg 1X ONCE 08/18/19 08:45 08/18/19 08:46 DC 08/18/19 08:39 50 MCG Morphine Sulfate (Morphine Sulfate) 2 mg 1X ONCE 08/18/19 07:30 08/18/19 07:31 DC 08/18/19 07:35 2 MG Ondansetron HCl (Zofran) 4 mg 1X ONCE 08/18/19 07:00 08/18/19 07:01 DC 08/18/19 07:21 4 MG Propofol (Diprivan) 200 mg 1X ONCE 08/18/19 07:00 08/18/19 07:01 DC 08/18/19 08:02 200 MG Sodium Chloride 1,000 ml @ 1,000 mls/hr 1X ONCE 08/18/19 07:00 08/18/19 07:59 DC 08/18/19 07:20 1,000 MLS/HR Allergies Allergies Allergies Coded Allergies Type Severity Reaction Last Updated Verified I S O L A T I O N *CONTACT* Allergy Unknown 06/27/18 Yes No Known Medication Allergies Allergy Unknown 12/20/18 Yes Physical Exam Physical Exam See above Constitutional: Well developed, well nourished, no acute distress, non-toxic appearance. Spells of alcohol slightly HENT: Normocephalic, atraumatic, bilateral external ears normal, oropharynx moist, no oral exudates, nose normal. [] Eyes: PERRLA, EOMI, conjunctiva normal, no discharge. [] Neck: Normal range of motion, no tenderness, supple, no stridor. [] Cardiovascular:Heart rate regular rhythm, no murmur [] Lungs & Thorax: Bilateral breath sounds clear to auscultation [] Abdomen: Bowel sounds normal, soft, no tenderness, no masses, no pulsatile masses. [] Skin: Warm, dry, no erythema, no rash. [] Back: No tenderness, no CVA tenderness. [] Extremities: Patient has his left shoulder propped up under her pillow and there is tenderness to palpation of the left shoulder region and pain with movement. No obvious deformities or crepitus noted. Neurologic: Alert and oriented X 3, normal motor function, normal sensory function, no focal deficits noted. [] Psychologic: Affect normal, judgement normal, mood normal. [] Current Patient Data Vital Signs Vital Signs Date Time Temp Pulse Resp B/P (MAP) Pulse Ox O2 Delivery O2 Flow Rate FiO2 08/18/19 08:39 22 96 Nasal Cannula 2.0 08/18/19 05:46 98.4 118 136/101 (113) 98.4 Lab Values Laboratory Tests Test 08/18/19 07:17 White Blood Count 17.8 x10^3/uL (4.0-11.0) H Red Blood Count 5.66 x10^6/uL (4.30-5.70) Hemoglobin 16.4 g/dL (13.0-17.5) Hematocrit 47.8 % (39.0-53.0) Mean Corpuscular Volume 85 fL (79-100) Mean Corpuscular Hemoglobin 29 pg (25-35) Mean Corpuscular Hemoglobin Concent 34 g/dL (31-37) Red Cell Distribution Width 15.9 % (11.5-14.5) H Platelet Count 223 x10^3/uL (140-400) Neutrophils (%) (Auto) 88 % (31-73) H Lymphocytes (%) (Auto) 7 % (24-48) L Monocytes (%) (Auto) 5 % (0-9) Eosinophils (%) (Auto) 0 % (0-3) Basophils (%) (Auto) 0 % (0-3) Neutrophils # (Auto) 15.6 x10^3/uL (1.8-7.7) H Lymphocytes # (Auto) 1.3 x10^3/uL (1.0-4.8) Monocytes # (Auto) 0.9 x10^3/uL (0.0-1.1) Eosinophils # (Auto) 0.0 x10^3/uL (0.0-0.7) Basophils # (Auto) 0.0 x10^3/uL (0.0-0.2) Segmented Neutrophils % 88 % (35-66) H Lymphocytes % 11 % (24-48) L Monocytes % 1 % (0-10) Platelet Estimate Adequate (ADEQUATE) Anisocytosis Slight Sodium Level 142 mmol/L (136-145) Potassium Level 3.6 mmol/L (3.5-5.1) Chloride Level 103 mmol/L (98-107) Carbon Dioxide Level 20 mmol/L (21-32) L Anion Gap 19 (6-14) H Blood Urea Nitrogen 13 mg/dL (8-26) Creatinine 1.1 mg/dL (0.7-1.3) Estimated GFR (Cockcroft-Gault) 69.2 Glucose Level 219 mg/dL (70-99) H Calcium Level 8.6 mg/dL (8.5-10.1) Ethyl Alcohol Level 53 mg/dL (0-10) H Laboratory Tests 08/18/19 07:17 Laboratory Tests 08/18/19 07:17 EKG EKG [] Radiology/Procedures Radiology/Procedures SHOULDER 2+V LEFT Clinical Indication: Fall with pain. Comparison: None. Findings: There is anterior subcoracoid shoulder dislocation. Limited evaluation for fracture. Cannot exclude Hill-Sachs fracture. There is well-corticated 15 mm bone fragment lateral to the glenoid, donor site uncertain. The AC joint is intact. The left upper lung is clear. There is degenerative endplate spurring in the thoracic spine. No acute left rib abnormality. IMPRESSION: Anterior shoulder dislocation. Electronically signed by: Guy Mcelroy MD (08/18/2019 6:38 AM) [id number][] Indication: Left shoulder dislocation Consent: Consent was obtained. Procedure: The pre-reduction exam showed distal perfusion and neurologic function to be normal.. The patient was placed in the appropriate position. Anesthesia/pain control 70 mg of propofol and 50 g of fentanyl while was ordered. Reduction of the left shoulder was performed by traction and countertraction. Post reduction films were obtained and revealed satisfactory reduction. A post-reduction exam revealed distal perfusion and neurologic function to be normal. The affected area was immobilized with old immobilizer The patient tolerated the procedure well. Complications: none. Course & Med Decision Making Course & Med Decision Making We'll get an x-ray the patient's left shoulder. I do not appreciate any other significant injuries and the patient does not appear excessively cold. 0646: Patient has an anterior shoulder dislocation. We'll establish an IV and given IV fluids and check basic labs including alcohol level as the patient does admit to drinking one pitcher of beer last night between 6:00 and 9:00. 0852: Patient had a left shoulder dislocation on x-ray. This was reduced; please see procedure above. Patient is doing well at this time. I have written prescriptions for hydrocodone and ibuprofen and given instructions to follow up with our orthopedic physician. Patient was understanding and is stable for discharge. Of note the patient's blood pressure was elevated while in the emergency department but he states he has not taken his home blood pressure medication and will do this when he gets home. Dragon Disclaimer Dragon Disclaimer This electronic medical record was generated, in whole or in part, using a voice recognition dictation system. Departure Departure Impression: Primary Impression: Dislocation of left shoulder joint Additional Impressions: Fall Alcohol use Hypertension Disposition: 01 HOME, SELF-CARE Condition: IMPROVED Referrals: CLEMENTINE COWART MD Call for follow up appointment after you leave the ED. You should follow up within the week or as directed by Dr. Cowart's office. Patient Instructions: Shoulder Dislocation, Shoulder Immobilizer Scripts Ibuprofen (IBUPROFEN) 800 Mg Tablet 800 MG PO PRN Q8HRS PRN for Shoulder Pain, #30 TAB Prov: MARQUITA SWEET DO 08/18/19 Hydrocodone/Apap 5-325 (NORCO 5-325 TABLET) 1 Each Tablet 1 TAB PO PRN Q6HRS PRN for PAIN for 5 Days, #20 TAB 0 Refills Prov: MARQUITA SWEET DO 08/18/19 MODERATE SEDATION ASSESSMENT* RISKS/ALTERNATIVES Risks/Alternatives Risks and alternatives of this type of sedation and procedure discussed with: RISK/ALTERNATIVES: Patient H & P ON CHART H & P H & P on chart and reviewed for co-morbid conditions and appropriate labs. H&P ON CHART: Yes STATUS PREG STATUS ASSESSED: N/A MEDS/ALLERGIES REVIEWED Meds/Allergies Reviewed Medications and Allergies including time and route of recently administered narcotics and sedatives. MEDS/ALLERGIES REVIEWED: Yes ASA RATING ASA RATING: II AIRWAY ASSESSMENT Airway Assessment Airway patency, oral function limitations, presence of caps, crowns, dentures, partials, and ability to extend neck assessed. AIRWAY ASSESSMENT: Yes MALLAMPATI SCORE MALLAMPATI SCORE: III PRE-SEDATION ASSESSMENT PRE-SEDATION ASSESSMENT: Yes Problem Qualifiers MARQUITA SWEET DO Aug 18, 2019 06:16
--- NOTE | 2019-08-18 06:41 | RAD ---
SHOULDER 2+V LEFT Clinical Indication: Fall with pain. Comparison: None. Findings: There is anterior subcoracoid shoulder dislocation. Limited evaluation for fracture. Cannot exclude Hill-Sachs fracture. There is well-corticated 15 mm bone fragment lateral to the glenoid, donor site uncertain. The AC joint is intact. The left upper lung is clear. There is degenerative endplate spurring in the thoracic spine. No acute left rib abnormality. IMPRESSION: Anterior shoulder dislocation. Electronically signed by: Guy Mcelroy MD (08/18/2019 6:38 AM) [id number]
[2019-08-18] MEDS ORDERED: HYDROcodone/APAP 5/325MG 1 TAB TABLET PO ONE (06:45)
[2019-08-18] MEDS ORDERED: IBUP-1060 PO (06:56)
[2019-08-18] MEDS ORDERED: HYDR-3164 PO (06:56)
[2019-08-18] MEDS ORDERED: PROPOFOL 10 MG/ML (20ML) VIAL. IV ONE (07:00)
[2019-08-18] MEDS ORDERED: ONDANSETRON PF 4 MG/2 ML VIAL. IVP ONE (07:00)
[2019-08-18] MEDS ORDERED: IV NORMAL SALINE 1000ML BAG 1,000 ML IV ONE (07:00)
[2019-08-18] MEDS ORDERED: MORPHINE SULFATE 2 MG/ML VIAL. ONE (07:22)
[2019-08-18 07:25] LABS: BASO % 0 % (0-3); EOS % 0 % (0-3); HEMATOCRIT 47.8 % (39.0-53.0); HEMOGLOBIN 16.4 g/dL (13.0-17.5); LYMPH # 1.3 x10^3/uL (1.0-4.8); LYMPH % 7 % (24-48); MEAN CORPUSCULAR HEMOGLOBIN 29 pg (25-35); MEAN CORPUSCULAR HGB CONC 34 g/dL (31-37); MEAN CORPUSCULAR VOLUME 85 fL (79-100); MONO # 0.9 x10^3/uL (0.0-1.1); MONO % 5 % (0-9); NEUT # 15.6 x10^3/uL (1.8-7.7); NEUT % 88 % (31-73); PLATELET COUNT 223 x10^3/uL (140-400); RED BLOOD COUNT 5.66 x10^6/uL (4.30-5.70); RED CELL DISTRIBUTION WIDTH 15.9 % (11.5-14.5); WHITE BLOOD COUNT 17.8 x10^3/uL (4.0-11.0)
[2019-08-18] MEDS ORDERED: MORPHINE SULFATE 2 MG/ML VIAL. IV ONE (07:30)
[2019-08-18 07:34] LABS: CALCIUM 8.6 mg/dL (8.5-10.1); CREATININE 1.1 mg/dL (0.7-1.3); GFR 69.2; POTASSIUM 3.6 mmol/L (3.5-5.1)
[2019-08-18] MEDS ORDERED: fentaNYL PF VIAL 100 MCG/2 ML VIAL ONE (07:56)
[2019-08-18 08:01] VITALS: BP 232/124
[2019-08-18 08:21] LABS: % LYMPHS 11 % (24-48); % MONOS 1 % (0-10); % SEGS 88 % (35-66); ANISOCYTOSIS SLIGHT; PLT ESTIMATE ADEQUATE (ADEQUATE)
--- NOTE | 2019-08-18 08:36 | RAD ---
2 view left shoulder study Clinical indications: Post reduction FINDINGS/ IMPRESSION: The previously seen dislocation of the glenohumeral joint has been reduced. 2 fracture fragments or loose bodies are again seen laterally. They appear well-corticated and therefore most likely are loose bodies rather than acute fracture fragments. There is no osseous defect of the humeral head and no radiolucent fracture line of the humeral head is seen otherwise. Electronically signed by: Inocente Encarnacion MD (08/18/2019 8:33 AM) [facility]
[2019-08-18] MEDS ORDERED: fentaNYL PF VIAL 100 MCG/2 ML VIAL IVP ONE (08:45)
[2019-08-18 09:09] VITALS: BP 198/102
== END 2019-08-18 09:30 | disposition home or self-care (01) ==
LOC: ER 05:45
DX: S42.292A Other displaced fracture of upper end of left humerus, initial encounter for closed fracture (principal); I10 Essential (primary) hypertension; F10.10 Alcohol abuse, uncomplicated; F12.90 Cannabis use, unspecified, uncomplicated; Z90.89 Acquired absence of other organs; Z98.890 Other specified postprocedural states; Z88.8 Allergy status to other drugs, medicaments and biological substances; W19.XXXA Unspecified fall, initial encounter; Y93.89 Activity, other specified; Y92.89 Other specified places as the place of occurrence of the external cause; Y99.8 Other external cause status
CPT/HCPCS: 23650; 36415; 73030; 80048; 85007; 85025; 96374; 96375; 99285; G0480; J2270; J2405; J2704; J3010; J7030; 99152